=== PATIENT | female | born 1995 | race Two or more races ===

== ENCOUNTER 2023-08-15 13:34 | Outpatient (OUT) | payer OTHER, SELFPAY ==
--- NOTE | 2023-08-15 13:35 | US_ITS ---
[address] [address] Patient Name: JOAO ISRAEL MRN: [id number] date: 1995 Sex: F Assigned Patient Location: [facility] Current Patient Location: [facility] Accession/Order Number: [id number] Exam Date: 08/15/2023 13:35 Report Date: 08/15/2023 15:06 At the request of: KIMANI GREENE Procedure: US OB transvaginal EXAMINATION: US OB transvaginal HISTORY: MISSED MENSES COMPARISON: No relevant comparison available. FINDINGS: Angel intrauterine gestation Gestational sac: 3.7 cm, 8 weeks 6 days CRL: 3.0 cm, 10 weeks 0 days Yolk sac: 1.7 mm Heart rate: 150 beats minute Cervix: Closed, 4.3 cm The uterus is normal, anteverted The ovaries are normal. Right corpus luteal cyst Clinical age: Unknown Ultrasound age: 10 weeks 0 days Ultrasound ALANA: 03/12/2024 US/US OB transvaginal IMPRESSION: Viable angel intrauterine gestation measuring 10 weeks 0 days Electronically authenticated by: EDWARD BRITTON Date: 08/15/2023 15:06
== END 2023-08-15 13:35 | disposition home or self-care (01) ==
LOC: NOMS 13:34
PROVIDERS: Visit Provider Obstetrics & Gynecology
DX: Z34.91 Encounter for supervision of normal pregnancy, unspecified, first trimester (principal); Z3A.10 10 weeks gestation of pregnancy
CPT/HCPCS: 76817

== ENCOUNTER 2024-01-29 11:36 | Outpatient (OUT) | payer OTHER, SELFPAY ==
--- NOTE | 2024-01-29 11:43 | US_ITS ---
[address] [address] Patient Name: JOAO ISRAEL MRN: [id number] date: 1995 Sex: F Assigned Patient Location: [facility] Current Patient Location: [facility] Accession/Order Number: [id number] Exam Date: 01/29/2024 11:43 Report Date: 01/29/2024 13:17 At the request of: KIMANI GREENE Procedure: US OB anatomy EXAMINATION: US OB anatomy, US OB cervical length HISTORY: ANATOMY COMPARISON: No relevant comparison available. TECHNIQUE: Transabdominal sonographic examination was performed for obstetrical and evaluation. FINDINGS: Suboptimal exam due to advanced gestational age Number: 1 Heart Rate: 136 H.B. /min Amniotic Fluid Volume: 9.2 cm position: Cephalic presentation, longitudinal lie Placental Location: Posterior. The placental edge cannot be visualized in relation to the cervix due to position Cervix Length: 4.4 cm, closed Normal observed anatomy: Four-chamber heart, RVOT, LVOT, diaphragm, stomach, kidneys, bladder, umbilical arteries, three-vessel cord, spine Suboptimal visualization: Lateral ventricles, cerebellum, posterior fossa, orbits, abdominal cord insertion, extremities BIOMETRY: BPD: 8.21 cm, 23%, 33 weeks 0 days HC: 30.5 cm, 17%, 34 weeks 0 days AC: 30.0 cm, 56%, 34 weeks 0 days FL: 6.6 cm, 42%, 34 weeks 0 days EFW:2291 g, 5 lbs. 1 oz., 43%; FL/AC: 21.99 FL/BPD: 80.27 HC/AC: 1.02 GESTATIONAL AGE: Age by EDC: 33 weeks 6 days ALANA by EDC: 03/12/2024 Age by current US: 33 weeks 5 days ALANA by current US: 03/13/2024 US/US OB anatomy IMPRESSION: Suboptimal exam secondary to advanced gestational age with suboptimal visualization detailed above Closed cervix measuring 4.4 cm in length *Reference: [facility] Practice Guideline for the performance of Obstetric Ultrasound Examinations, April 21, 2007. Electronically authenticated by: EDWARD BIRTTON Date: 01/29/2024 13:17
--- NOTE | 2024-01-29 11:43 | US_ITS ---
[address] [address] Patient Name: JOAO ISRAEL MRN: [id number] date: 1995 Sex: F Assigned Patient Location: [facility] Current Patient Location: [facility] Accession/Order Number: [id number] Exam Date: 01/29/2024 11:43 Report Date: 01/29/2024 13:17 At the request of: KIMANI GREENE Procedure: US OB cervical length EXAMINATION: US OB anatomy, US OB cervical length HISTORY: ANATOMY COMPARISON: No relevant comparison available. TECHNIQUE: Transabdominal sonographic examination was performed for obstetrical and evaluation. FINDINGS: Suboptimal exam due to advanced gestational age Number: 1 Heart Rate: 136 H.B. /min Amniotic Fluid Volume: 9.2 cm position: Cephalic presentation, longitudinal lie Placental Location: Posterior. The placental edge cannot be visualized in relation to the cervix due to position Cervix Length: 4.4 cm, closed Normal observed anatomy: Four-chamber heart, RVOT, LVOT, diaphragm, stomach, kidneys, bladder, umbilical arteries, three-vessel cord, spine Suboptimal visualization: Lateral ventricles, cerebellum, posterior fossa, orbits, abdominal cord insertion, extremities BIOMETRY: BPD: 8.21 cm, 23%, 33 weeks 0 days HC: 30.5 cm, 17%, 34 weeks 0 days AC: 30.0 cm, 56%, 34 weeks 0 days FL: 6.6 cm, 42%, 34 weeks 0 days EFW:2291 g, 5 lbs. 1 oz., 43%; FL/AC: 21.99 FL/BPD: 80.27 HC/AC: 1.02 GESTATIONAL AGE: Age by EDC: 33 weeks 6 days ALANA by EDC: 03/12/2024 Age by current US: 33 weeks 5 days ALANA by current US: 03/13/2024 US/US OB cervical length IMPRESSION: Suboptimal exam secondary to advanced gestational age with suboptimal visualization detailed above Closed cervix measuring 4.4 cm in length *Reference: [facility] Practice Guideline for the performance of Obstetric Ultrasound Examinations, April 21, 2007. Electronically authenticated by: EDWARD BRITTON Date: 01/29/2024 13:17
== END 2024-01-29 11:37 | disposition home or self-care (01) ==
LOC: NOMS 11:41
PROVIDERS: PCP Nurse Practitioner; Visit Provider Obstetrics & Gynecology
DX: Z36.89 Encounter for other specified antenatal screening (principal)
CPT/HCPCS: 76805; 76817

== ENCOUNTER 2024-02-05 14:21 | Outpatient (OUT) | payer OTHER, SELFPAY ==
[2024-02-05 15:14] LABS: Estimated Average Glucose 114 mg/dL; Glycohemoglobin A1C 5.6 % (4.5-6.2)
[2024-02-05 15:27] LABS: Basophils Percent Auto 0.3 % (0.2-2.0); Eosinophils Absolute Auto 0.1 10^3/uL (0.0-0.7); Eosinophils Percent Auto 0.8 % (0.9-7.0); Hematocrit 33.8 % (36.0-48.0); Hemoglobin 10.6 g/dL (12.0-16.0); Immature Granulocytes Abs Auto 0.13 10^3/uL (0.00-0.03); Immature Granulocytes Pct Auto 1.1 % (0.0-0.5); Lymphocytes Absolute Auto 2.6 10^3/uL (1.2-3.8); Lymphocytes Percent Auto 21.7 % (20.5-60.0); Mean Corpuscular HGB Conc 31.4 g/dL (29.9-35.2); Mean Corpuscular Hemoglobin 27.7 pg (26.7-34.0); Mean Corpuscular Volume 88.3 fL (81.0-99.0); Mean Platelet Volume 11.6 fL (9.5-13.5); Monocytes Absolute Auto 0.7 10^3/uL (0.3-0.8); Monocytes Percent Auto 5.5 % (1.7-12.0); Neutrophils Absolute Auto 8.4 10^3/uL (1.4-6.5); Neutrophils Percent Auto 70.6 % (43.0-75.0); Platelet Count 283 10^3/uL (150-450); Red Blood Count 3.83 10^6/uL (4.20-5.40); Red Cell Distribution Width 13.6 % (11.0-15.0)
[2024-02-06 08:13] LABS: HCV Ab Non Reactive (Non Reactive); HIV Ab/p24 Ag Screen Non Reactive (Non Reactive); Rubella Antibodies, IgG 4.94 index (Immune >0.99)
[2024-02-06 09:11] LABS: HBsAg Screen Negative (Negative)
[2024-02-06 13:11] LABS: Rapid Plasma Reagin, Quant Non Reactive titer (NonRea<1:1)
== END 2024-02-05 14:22 | disposition home or self-care (01) ==
PROVIDERS: PCP Nurse Practitioner; Visit Provider Obstetrics & Gynecology
DX: N92.6 Irregular menstruation, unspecified (principal)
CPT/HCPCS: 36415; 83036; 85025; 86592; 86762; 86803; 86850; 86900; 86901; 87086; 87340; 87389

== ENCOUNTER 2024-02-12 18:29 | Outpatient (REF) | payer OTHER, SELFPAY ==
--- OUTSIDE RECORDS SUMMARY | 2024-02-12 18:33 | XMS_ITS | CCD ---
Author Organization [facility] Care Team Providers Care Psychological Operations Specialist Name Role Phone Katharina Mallory Unavailable ShaniquaLenoRadha Unavailable Paula Benitez Unavailable Paula Brandon Unavailable DEANNE WHEAT Consulting UnavailTHOMAS Caballero Admitting Unavailable THOMAS CHÁVEZ Attending Unavailable [facility] Primary Care Unava ilable TORRES MORIN Consulting Unavailable KIMANI GREENE Referring Unavailable NO PCP, NO PCP Primary Care Unavailable KIMANI GREENE Referring Unavailable LOUIE VARGAS Primary Care Unavailable LOUIE ROSS Attending Unavailable Medications Current Medications Medication Drug Class(es) Dates Sig (Normalized) Sig (Original) ondansetron 4 mg disintegrating oral tablet (1 source) Serotonin-3 Receptor Antagonist Start: 01-24-2024 take 4 mg by mouth every eight hours Ondansetron Active 4 MG PO Every 8 hours 7 3 January 24, 2024 12:00am Post-OP Shoe/Soft Top Women - (2 sources) Start: 03-08-2019 Post-OP Shoe/Soft Top Women - as directed Feb, Active (2 sources) Active Problems Active Problems Problem Classification Problem Date Documented Date Episodic/Chronic Contraceptive and procreative management (1 source) Presence of (intrauterine) contraceptive device; Translations: [PRESENCE IU CONTRACEPT DEVICE] Onset: 10-08-2022 Episodic Menstrual disorders (1 source) Irregular menstruation, unspecified; Translations: [Irregular menstruation, unspecified] Onset: 07-17-2023 Chronic Nonspecific chest pain (4 sources) Chest pain, unspecified; Translations: [CHEST PAIN UNSPECIFIED] Onset: 10-04-2022 Episodic Other complications of (2 sources) Vomiting of , unspecified; Translations: [Nausea and vomiting during ] 01-24-2024 Episodic Substance-related disorders (1 source) Nicotine dependence, other tobacco product, uncomplicated; Translations: [NICOTINE DEPEND OTH TOB PROD UNCOMP] Onset: 10-08-2022 Chronic Past or Other Problems Problem Classification Problem Date Documented Da te Episodic/Chronic Immunizations and screening for infectious disease (3 sources) Encounter for screening for other viral diseases; Translations: [Contact with and (suspected) exposure to other viral communicable diseases] Onset: 04-12-2021 Resolved: 06-06-2021 Episodic Other upper respiratory infections (2 sources) Acute upper respiratory infection, unspecified Onset: 06-06-2021 Resolved: 02-21-2022 Episodic Unclassified (2 sources) Exposure to COVID-19 virus Z20.822 Onset: 02-05-2022 Resolved: 03-30-2022 Unclassified (1 source) Cough, unspecified type R05.9 Onset: 02-21-2022 Resolved: 02-21-2022 Results Test Name Value Interpretation Reference Range Facility HCG.beta subunit IA 3rd IS Q non 07-19-2023 HCG.beta subunit Qn 7602 m[IU]/mL Normal [facility] Comment on above: Result Comment: NEW REFERENCE RANGE WEEKS (SINCE LMP) MIU/mL 3 WEEKS 5 - 50 4 WEEKS 5 - 426 5 WEEKS 18 - 7,340 6 WEEKS 1,080 - 56,500 7-8 WEEKS 7,650 - 229,000 9-12 WEEKS 25,700 - 288,000 13-16 WEEKS 13,300 - 254,000 17-24 WEEKS 4,060 - 165,400 25-40 WEEKS 3,640 - 117,000 MALES AND NON- FEMALES - <5 MIU/mL This test has been FDA approved for use in only. Elevated levels are not necessarily diagnostic for trophoblastic or nontrophoblastic neoplasms. Performed By: #### 2 0415-6 #### [facility] ([id number]) [address] [place] [address], [address] [place] [address] HCG.beta subunit IA 3rd IS Q non 07-17-2023 HCG.beta subunit Qn 4887 m[IU]/mL Normal [facility] Comment on above: Result Comment: NEW REFERENCE RANGE WEEKS (SINCE LMP) MIU/mL 3 WEEKS 5 - 50 4 WEEKS 5 - 426 5 WEEKS 18 - 7,340 6 WEEKS 1,080 - 56,500 7-8 WEEKS 7,650 - 229,000 9-12 WEEKS 25,700 - 288,000 13-16 WEEKS 13,300 - 254,000 17-24 WEEKS 4,060 - 165,400 25-40 WEEKS 3,640 - 117,000 MALES AND NON- FEMALES - <5 MIU/mL This test has been FDA approved for use in only. Elevated levels are not necessarily diagnostic for trophoblastic or nontrophoblastic neoplasms. Performed By: #### 2 0415-6 #### [facility] ([id number]) [address], [address] [place] [address] CBC AUTO DIFFon 10-04-2022 BASO # 0.1 103/ul Normal 0.0-0.1 [facility] Comment on above: Performed By: #### C BC #### [facility] [address] [address] [address] Chrystal Tsai Basophils/100 WBC (Bld) 0.8 % Normal 0.2-2.0 [facility] Comment on above: Performed By: #### C BC #### [facility] [address] [address] [address] Chrystal Tsai EO # 0.2 103/ul Normal 0.0-0.7 [facility] Comment on above: Performed By: #### C BC #### [facility] [address] [address] [address] Chrystal Tsai Eosinophils/100 WBC (Bld) 2.5 % Normal 0.9-7.0 [facility] Comment on above: Performed By: #### C BC #### [facility] [address] [place] [address] Dr. Chrystal Tsai Erythrocyte distribution width (RBC) [Ratio] 14.6 % Normal 11.0-15.0 [facility] Comment on above: Performed By: #### C BC #### [facility] [address] [place] [address] Dr. Chrystal Tsai Hematocrit (Bld) [Volume fraction] 40.9 % Normal 36.0-48.0 [facility] Comment on above: Performed By: #### C BC #### [facility] [address] [place] [address] Dr. Chrystal Tsai Hemoglobin (Bld) [Mass/Vol] 13.0 g/dL Normal 12.0-16.0 [facility] Comment on above: Performed By: #### C BC #### [facility] [address] [place] [address] Dr. Chrystal Tsai IG # 0.01 10e3/ul Normal 0.00-0.03 [facility] Comment on above: Performed By: #### C BC #### [facility] [address] [place] [address] Dr. Chrystal Tsai IG % 0.1 % Normal 0.0-0.5 [facility] Comment on above: Performed By: #### C BC #### [facility] [address] [place] [address] Dr. Chrystal Tsai LYMPH # 3.0 103/ul Normal 1.2-3.8 [facility] Comment on above: Performed By: #### C BC #### [facility] [address] [place] [address] Dr. Chrystal Tsai Lymphocytes/100 WBC (Bld) 39.0 % Normal 20.5-60.0 [facility] Comment on above: Performed By: #### C BC #### [facility] [address] [place] [address] Dr. Chrystal Tsai MANUAL DIFF REQ NO Normal [facility] Comment on above: Performed By: #### C BC #### [facility] [address] [place] [address] Dr. Chrystal Tsai MCH (RBC) [Entitic mass] 27.0 pg Normal 26.7-34.0 [facility] Comment on above: Performed By: #### C BC #### [facility] [address] [place] [address] Dr. Chrystal Tasi MCHC (RBC) [Mass/Vol] 31.8 g/dL Normal 29.9-35.2 [facility] Comment on above: Performed By: #### C BC #### [facility] [address] [place] [address] Dr. Chrystal Tsai MCV (RBC) [Entitic vol] 84.9 fL Normal 81.0-99.0 [facility] Comment on above: Performed By: #### C BC #### [facility] [address] [place] [address] Dr. Chrystal Tsai MONO # 0.6 103/ul Normal 0.3-0.8 [facility] Comment on above: Performed By: #### C BC #### [facility] [address] [place] [address] Dr. Chrystal Tsai Monocytes/100 WBC (Bld) 7.2 % Normal 1.7-12.0 [facility] Comment on above: Performed By: #### C BC #### [facility] [address] [place] [address] Dr. Chrystal Tsai NEUT # 3.9 103/ul Normal 1.4-6.5 [facility] Comment on above: Performed By: #### C BC #### [facility] [address] [place] [address] Dr. Chrystal Tsai Neutrophils/100 WBC (Bld) 50.4 % Normal 43.0-75.0 [facility] Comment on above: Performed By: #### C BC #### [facility] [address] [place] [address] Dr. Chrystal Tsai Platelet mean volume (Bld) [Entitic vol] 11.3 fL Normal 9.5-13.5 [facility] Comment on above: Performed By: #### C BC #### [facility] [address] [address] [address] Chrystal Tsai PLT 286 103/ul Normal 150-450 [facility] Comment on above: Performed By: #### C BC #### [facility] [address] [address] [address] Chrystal Tsai RBC 4.82 106/ul Normal 4.20-5.40 [facility] Comment on above: Performed By: #### C BC #### [facility] [address] [address] [address] Chrystal Tsai WBC 7.7 103/ul Normal 4.0-11.0 [facility] Comment on above: Performed By: #### C BC #### [facility] [address] [address] [address] Chrystal Tsai CTA CHEST WO W CONon 023 CTA CHEST WO W CON EXAMINATION: CTA CHEST WO W CON, 10/04/2022 5:48 PM EDT HISTORY: Pulmonary embolism COMPARISON: None. TECHNIQUE: CT angiography of the chest was performed with IV contrast. MIP (maximum intensity projection) images or 3D post processing was performed. CT dose reduction technique was used, including Automated Exposure Control. FINDINGS: VASCULATURE/PULMONARY ARTERIES: There is satisfactory opacification of the pulmonary arterial system. There is no evidence of pulmonary embolism. The main pulmonary artery is normal in diameter. The aorta and great vessels appear normal. HEART/PERICARDIUM: Normal. MEDIASTINAL/HILAR LYMPH NODES: No lymphadenopathy. ESOPHAGUS: Normal as visualized. PLEURAL CAVITY: No pleural effusion or pneumothorax. LUNGS/AIRWAYS: No infiltrates or consolidations. No suspicious pulmonary nodules. CHEST WALL/AXILLA/LOWER NECK: Normal. VISUALIZED UPPER ABDOMEN: Normal. BONES: No acute process. IMPRESSION: 1. No evidence of pulmonary embolism. 2. No other acute cardiopulmonary process. Electronically authenticated by: TORRES MORIN Date: 2022-10-04 19:13 Normal [facility] D-DIMERon 10-04-2022 D-DIMER 0.92 mg/L FEU Critically high <=0.59 [facility] Comment on above: Performed By: #### D DIM #### [facility] [address] [place] [address] Dr. Chrystal Tsai D-DIMER COMMENTS SEE BELOW Normal [facility] Comment on above: Result Comment: Incr eases in D-Dimer concentration observed with thromboembolic events can be variable due to localization, size, and age of the thrombus. Therefore, a thromboembolic event cannot be diagnosed with certainty on the basis of the reference range. D-Dimers may also be elevated for a variety of disorders including: advanced age, , coronary disease, cancer, liver disease, infection, inflammation, hematoma, DIC, trauma, post-surgery, diabetes, thrombolytic or anticoagulant therapy, stress, and generalized hospitalization. Performed By: #### D DIM #### [facility] [address] [place] [address] Dr. Chrystal Tsai PROF 14(COMP METB)on 023 Albumin [Mass/Vol] 3.7 g/dL Normal 3.4-5.0 [facility] Comment on above: Performed By: #### C KEYSHA HSTROPN #### [facility] [address] [place] [address] Dr. Chrystal Tsai Albumin/Globulin [Mass ratio] 1.0 {ratio} Normal [facility] Comment on above: Performed By: #### C KEYSHA, HSTROPN #### [facility] [address] [place] [address] Dr. Chrystal Tsai ALP [Catalytic activity/Vol] 82 U/L Normal 46-116 [facility] Comment on above: Performed By: #### C KEYSHA, HSTROPN #### [facility] [address] [place] [address] Dr. Chrystal Tsai ALT [Catalytic activity/Vol] 17 U/L Normal 14-59 [facility] Comment on above: Performed By: #### C MP, HSTROPN #### [facility] [address] [place] [address] Dr. Chrystal Tsai Anion gap [Moles/Vol] 13.7 mmol/L Normal [facility] Comment on above: Performed By: #### C MP, HSTROPN #### [facility] [address] [place] [address] Dr. Chrystal Tsai AST [Catalytic activity/Vol] 14 U/L Critically low 15-37 [facility] Comment on above: Performed By: #### C KEYSHA, HSTROPN #### [facility] [address] [place] [address] Dr. Chrystal Tsai Bilirubin [Mass/Vol] 0.2 mg/dL Normal 0.2-1.0 [facility] Comment on above: Performed By: #### C KEYSHA, HSTROPN #### [facility] [address] [address] [address] Chrystal Tsai Calcium [Mass/Vol] 8.8 mg/dL Normal 8.5-10.1 [facility] Comment on above: Performed By: #### C KEYSHA, HSTROPN #### [facility] [address] [place] [address] Dr. Chrystal Tsai Chloride [Moles/Vol] 107 mmol/L Normal 98-107 [facility] Comment on above: Performed By: #### C KEYSHA, HSTROPN #### [facility] [address] [place] [address] Dr. Chrystal Tsai CO2 [Moles/Vol] 26.6 mmol/L Normal 21.0-32.0 [facility] Comment on above: Performed By: #### C KEYSHA, HSTROPN #### [facility] [address] [place] [address] Dr. Chrystal Tsai Creatinine [Mass/Vol] 0.89 mg/dL Normal 0.55-1.02 [facility] Comment on above: Performed By: #### C KEYSHA, HSTROPN #### [facility] [address] [place] [address] Dr. Chrystal Tsai EGFR-AF FILIPINO >60 Normal >=60 [facility] Comment on above: Performed By: #### C KEYSHA, HSTROPN #### [facility] [address] [place] [address] Dr. Chrystal Tsai EGFR-NON AF FILIPINO >60 Normal >=60 [facility] Comment on above: Performed By: #### C KEYSHA, HSTROPN #### [facility] [address] [address] [address] Chrystal Tsai Globulin (S) [Mass/Vol] 3.7 g/dL Normal [facility] Comment on above: Performed By: #### C MP, HSTROPN #### [facility] [address] [address] [address] Chrystal Tsai Glucose [Mass/Vol] 92 mg/dL Normal 74-106 [facility] Comment on above: Performed By: #### C MP, HSTROPN #### [facility] [address] [place] [address] Dr. Chrystal Tsai Potassium [Moles/Vol] 4.3 mmol/L Normal 3.5-5.1 [facility] Comment on above: Performed By: #### C MP, HSTROPN #### [facility] [address] [place] [address] Dr. Chrystal Tsai Protein [Mass/Vol] 7.4 g/dL Normal 6.4-8.2 [facility] Comment on above: Performed By: #### C MP, HSTROPN #### [facility] [address] [place] [address] Dr. Chrystal Tsai Sodium [Moles/Vol] 143 mmol/L Normal 136-145 [facility] Comment on above: Performed By: #### C MP, HSTROPN #### [facility] [address] [place] [address] Dr. Chrystal Tsai Urea nitrogen [Mass/Vol] 9.0 mg/dL Normal 7.0-18.0 [facility] Comment on above: Performed By: #### C MP, HSTROPN #### [facility] [address] [place] [address] Dr. Chrystal Tsai Urea nitrogen/Creatinin e [Mass ratio] 10.1 mg/mg Normal [facility] Comment on above: Performed By: #### C MP, HSTROPN #### [facility] [address] [place] [address] Dr. Chrystal Tsai TROPONIN, HIGH SENSITIVITYon 10-04-2022 HSTROP <4.0 Normal 4.0-51.3 [facility] Comment on above: Result Comment: CUT- OFF POINTS HAVE BEEN ESTABLISHED BASED ON THE FOURTH UNIVERSAL DEFINITIONS OF MYOCARDIAL INFARCTION. THE UPPER REFERENCE LIMIT (URL) OF TROPONIN, DEFINED THE 99TH PERCENTILE OF cTnI DISTRIBUTION IN A REFERENCE POPULATION, HAS BEEN CONFIRMED THE DECISION THRESHOLD FOR DE DIAGNOSIS. Performed By: #### C MP, HSTROPN #### [facility] [address] [place] [address] Dr. Chrystal Tsai SARS-CoV-2 (COVID-19) RNA NA A+probe Ql (Resp)on 03-30-2022 SARS-CoV-2 (COVID-19) RNA BEST+probe Ql (Unsp spec) Negative [facility] [employer] Other SARS-CoV-2 (COVID-19) RNA NA A+probe Ql (Resp)on 02-21-2022 SARS-CoV-2 (COVID-19) RNA BEST+probe Ql (Unsp spec) Negative [employer] Other SARS-CoV-2 (COVID-19) RNA NA A+probe Ql (Resp)on 02-05-2022 SARS-CoV-2 (COVID-19) RNA BEST+probe Ql (Unsp spec) Negative [employer] [employer] Other COVID Quick Testingon 2020 Result Negative [facility] [employer] Other COVID Quick Testingon 2020 Result Negative [facility] [employer] Other COVID Quick Testingon 2020 Result Negative [facility] [employer] Other Vital Signs Date Time Vital Sign Value Performing Clinician Facility 01-24-2024 17:02-0400 Body height 157.48 cm [facility] 01-24-2024 17:-040 Body mass index (BMI) [Ratio] 41.3 kg/m2 [facility] 01-24-2024 17:02-040 Body temperature 100.3 [degF] [facility] 01-24-2024 17:02040 Body weight 102.51 kg [facility] 01-24-2024 17:02-0400 Diastolic blood pressure 68 mm[Hg] [facility] 01-24-2024 17:02-0400 Heart rate 93 /min [facility] 01-24-2024 17:02-0400 Respiratory rate 18 /min [facility] 01-24-2024 17:02-0400 SaO2% (BldA) [Mass fraction] 99 % [facility] 01-24-2024 17:02-0400 Systolic blood pressure 106 mm[Hg] [facility] 03-30-2022 19:05-0400 Body height 157.48 cm Paula Brandon Other [facility] [employer] Other 03-30-2022 19:05-0400 Body mass index (BMI) [Ratio] 36.61 kg/m2 Paula Brandon Other [employer] Other 03-30-2022 19:05-0400 Body temperature 98.8 [degF] Paula Brandon Other [employer] Other 03-30-2022 19:05-0400 Body weight 90.81 kg Paula Brandon Other [employer] Other 03-30-2022 19:05-0400 Diastolic blood pressure 60 mm[Hg] Paula Brandon Other [employer] Other 03-30-2022 19:05-0400 Respiratory rate 18 /min Paula Brandon Other [employer] Other 03-30-2022 19:05-0400 SaO2% (BldA) [Mass fraction] 98 % Paula Brandon Other [employer] Other 03-30-2022 19:05-0400 Systolic blood pressure 103 mm[Hg] Paula Brandon Other [employer] Other 02-21-2022 14:45-0400 Body height 157.48 cm Katharina Mallory Other [employer] Other 02-21-2022 14:45-0400 Body mass index (BMI) [Ratio] 38.59 kg/m2 Katharina Mallory Other [employer] Other 02-21-2022 14:45-0400 Body temperature 98.4 [degF] Katharina Mallory Other [employer] Other 02-21-2022 14:45-0400 Body weight 95.71 kg Katharina Mallory Other [employer] Other 02-21-2022 14:45-0400 Respiratory rate 18 /min Katharina Mallory Other [employer] Other 02-21-2022 14:45-0400 SaO2% (BldA) [Mass fraction] 99 % Katharina Mallory Other [employer] Other 02-05-2022 18:35-0400 Body height 157.48 cm Radha Mcgovern Other [employer] Other 02-05-2022 18:35-0400 Body mass index (BMI) [Ratio] 39.5 kg/m2 Radha Mcgovern Other [employer] Other 02-05-2022 18:35-0400 Body temperature 100.7 [degF] Radha Mcgovern Other [facility] Other 02-05-2022 18:35-0400 Body weight 97.98 kg Radha Mcgovern Other [facility] Other 02-05-2022 18:35-0400 Respiratory rate 18 /min Radha Mcgovern Other [employer] Other 02-05-2022 18:35-0400 SaO2% (BldA) [Mass fraction] 98 % Radha Mcgovern Other [employer] Other 06-06-2021 11:00-0500 Body height 157.48 cm Paula Ginty Other [employer] Other 06-06-2021 11:00-0500 Body mass index (BMI) [Ratio] 40.23 kg/m2 Paula Ginty Other [employer] Other 06-06-2021 11:00-0500 Body weight 99.79 kg Paula Ginty Other [employer] Other Encounters Encounter Date Encounter Type Care Provider Facility Start: 01-24-2024 End: 01-24-2024 ambulatory [facility] Work Phone: Start: 01-24-2024 End: 01-24-2024 Patient encounter procedure [facility] Work Phone: Start: 08-15-2023 End: 08-15-2023 ambulatory LOUIE AICHHOLZ Not Available Start: 07-19-2023 End: 07-20-2023 ambulatory [facility] Start: 07-17-2023 End: 07-18-2023 ambulatory KIMANI [facility] Start: 07-08-2023 End: 07-08-2023 ambulatory LOUIE AICHHOLZ Not Available Start: 10-04-2022 End: 10-04-2022 ambulatory DEANNE MENDOZA . Facility: Start: 03-30-2022 End: 03-30-2022 ambulatory Paula Brandon Other [employer] Other Start: 03-30-2022 Office outpatient visit 25 minutes Paula Brandon [facility] Start: 02-21-2022 End: 02-21-2022 ambulatory Katharina Shawnee Other [employer] Other Start: 02-21-2022 Office outpatient visit 15 minutes Katharina Shawnee [facility] Start: 02-05-2022 End: 02-05-2022 ambulatory Radha Mcgovern Other [employer] Other Start: 02-05-2022 Office outpatient visit 25 minutes Radhatiesha Mcgovern [facility] Start: 06-06-2021 End: 06-06-2021 ambulatory Paula Vaishalinty Other [employer] Other Start: 06-06-2021 Office outpatient visit 15 minutes Paula Vaishalinty [facility] Start: 05-08-2021 Office outpatient visit 5 minutes Radha Shaniqua [facility] Start: 04-12-2021 Office outpatient visit 5 minutes Katharina Shawnee [facility] Payers Date Payer Category Payer Unknown [id number] 2.16.84 [id number] 1995 Unknown [id number] 2.16.84 [id number] 1997 Unknown [id number] 2.16.84 [id number] 1997 Unknown [id number] [id number] [id number] 1959 Unknown [id number] Self-pay Self Pay [id number] Unknown [id number] 2.1 [id number] Social History Date Type Detail Facility Sex Assigned At [employer] Other Start: 1995 Sex Assigned At Female F [facility] Evaluation note 03-30-2022 Note Date & Type Note Facility 03-30-2022 Evaluation note Encounter Date Diagnosis Assessment Notes Mar, Exposure to COVID-19 virus (ICD-10 - Z20.822) Advised patient that COVID PCR test was negative today. Advised patient that tests are only accurate if she has been experiencing symptoms at least 48-72 hours. If symptoms continue or worsen, encouraged use of at home test. Supportive care as directed, increase fluids and rest, Tylenol/Motrin as directed, OTC cough/cold remedies as directed on packaging, cool mist humidifier, throat lozenges. Discussed infection control practices such as good hand washing and mask wearing. Patient to follow up with PCP if sx persist or worsen despite treatment. Immediate eval for SOB, difficulty, chest pain, fevers that do not break with antipyretic or any other concerning symptoms as reviewed on patient education handout. Patient verbalizes understanding and is agreeable to treatment plan. Patient left in stable condition [employer] Other Evaluation note 02-21-2022 Note Date & Type Note Facility 02-21-2022 Evaluation note Encounter Date Diagnosis Assessment Notes Feb, Cough, unspecified type (ICD-10 - R05.9) Feb, Viral upper respiratory infection (ICD-10 - J06.9) Viral upper respiratory infection: adult home care material was printed Drink plenty of fluids, get plenty of rest. Take Tylenol or Motrin for aches pains or fevers. Follow-up with your family physician if no improvement in 2 to 3 days. [facility] Other Evaluation note 02-05-2022 Note Date & Type Note Facility 02-05-2022 Evaluation note Encounter Date Diagnosis Assessment Notes Jan, Exposure to COVID-19 virus (ICD-10 - Z20.822) [facility] Other Evaluation note 06-06-2021 Note Date & Type Note Facility 06-06-2021 Evaluation note Encounter Date Diagnosis Assessment Notes May, Contact with and (suspected) exposure to other viral communicable diseases (ICD-10 - Z20.828) May, Viral URI (ICD-10 - J06.9) Advised patient that COVID antigen test was negative today. Advised patient that will tx as viral URI. Supportive care as directed, increase fluids and rest, Tylenol/Motrin as directed, OTC cough/cold remedies as directed on packaging, cool mist humidifier, throat lozenges. Discussed infection control practices such as good hand washing and mask wearing. Patient to follow up with PCP if sx persist or worsen despite treatment. Immediate eval for warning s/sx as discussed. Patient verbalizes understanding and is agreeable to treatment plan May, Other Additional time spent conducting pre-visit phone call, screening for symptoms, instructions on social distancing, application and removal of PPE, and cleaning of examination room, equipment and supplies was preformed. Patient education given for testing methodology and results. Patient care instructions given in writting by [facility] document [facility] Other Evaluation note 05-08-2021 Note Date & Type Note Facility 05-08-2021 Evaluation note Encounter Date Diagnosis Assessment Notes Apr, Encounter for screening for other viral diseases (ICD-10 - Z11.59) Apr, Other Additional time spent conducting pre-visit phone call, screening for symptoms, instructions on social distancing, application and removal of PPE, and cleaning of examination room, equipment and supplies was preformed. Patient education given for testing methodology and results. Patient care instructions given in writting by [facility] document. Additional time spent conducting pre-visit phone call, screening for symptoms, instructions on social distancing, application and removal of PPE, and cleaning of examination room, equipment and supplies was preformed. Patient education given for testing methodology and results. Patient care instructions given in writting by [facility] document. [facility] Other Evaluation note 04-12-2021 Note Date & Type Note Facility 04-12-2021 Evaluation note Encounter Date Diagnosis Assessment Notes Mar, Encounter for screening for other viral diseases (ICD-10 - Z11.59) Mar, Other Additional time spent conducting pre-visit phone call, screening for symptoms, instructions on social distancing, application and removal of PPE, and cleaning of examination room, equipment and supplies was preformed. Patient education given for testing methodology and results. Patient care instructions given in writting by [facility] document. [facility] Other Evaluation note Note Date & Type Note Facility Evaluation note Diagnosis Onset Date Nausea and vomiting during [facility] Work Phone: History general Narrative - Reported Note Date & Type Note Facility History general Narrative - Reported Type Medical History 21 weeks [facility] Other Summary Purpose Family History No Family History Records FoundNo Family History Records FoundNo Family History Records Found Advance Directives Advance Directive Response Recorded Date/ Time Advance Directives No March 09, 2019 6:28am Chief Complaint and Reason for Visit Chief Complaint nauseous (wants zolf ran or something to help) Reason for Visit Nausea and vomiting during Additional Source Comments REASON FOR VISIT (unrecogniz ed section and content) #30 SILVER TRAVERSE, COVID E XPOSURE#29 SILVER CHEVY TRAVERSE, COVID EXPOSURE, NO SX., COVID Nurse Visit- Self Pay, COVID Nurse Visit- Self Pay#5 SILVER TRAVERSE, EXPOSURE, SORE THROAT, RUNNY NOSEBLACK MINIVAN, CONGESTION, H/A, COVID EXPOSUREBLACK CARAVAN, CONGESTION, COUGH, EXPOSUREBLACK DODGE VAN, COUGH, CONGESTION, LOOSE STOOL, N/V INFORMATION SOURCE (unrecogn ized section and content) DATE CREATED AUTHOR 10/08/2022 [facility] DATE CREATED AUTHOR AUTHOR'S ORGANIZ ATION 07/21/2023 [facility] DATE CREATED AUTHOR AUTHOR'S ORGANIZ ATION 08/17/2023 [facility] EPIC Care Teams (unrecognized sec tion and content) Team Status: Active Member Role Status Dates Jossy Nuñez DO Primary Care Provider Active Team Status: Inactive Member Role Status Dates Jossy Nuñez DO Primary Care Provider Active St art: January 24, 2024 End: January 24, 2024 Betsy Rios APRN Attending Provider Active S tart: January 24, 2024 End: January 24, 2024 Goals (unrecognized section and content) Goals may be documented in a n alternate section FOR RECORDS PERTAINING TO PATIENTS WHO ARE OR HAVE BEEN ENROLLED IN A CHEMICAL DEPENDENCY/SUBSTANCEABUSE PROGRAM, SOME INFORMATION MAY BE OMITTED. This clinical summary was aggregated from multiple sources. Caution should be exercised in using it in the provision of clinical care. This summary normalizes information from multiple sources, and as a consequence, information in this document may materially change the coding, format and clinical context of patient data. In addition, data may be omitted in some cases. CLINICAL DECISIONS SHOULD BE BASED ON THE PRIMARY CLINICAL RECORDS. [facility] provides no warranty or guarantee of the accuracy or completeness of information in this document.
== END 2024-02-12 18:30 | disposition home or self-care (01) ==
LOC: LAB 18:29
PROVIDERS: PCP Nurse Practitioner; Visit Provider Physician Assistant
DX: Z34.93 Encounter for supervision of normal pregnancy, unspecified, third trimester (principal)
CPT/HCPCS: 36415; 87081; 87150

== ENCOUNTER 2024-03-05 04:55 | Inpatient (IN) | payer OTHER, SELFPAY ==
[2024-03-05] VITALS (44 sets, daily range): BP systolic 86–138; BP diastolic 51–86; PULSE 68–123; TEMP 36.2–36.8
--- OUTSIDE RECORDS SUMMARY | 2024-03-05 04:59 | XMS_ITS | CCD ---
Author Organization [facility] Team Providers Care Briar Wood Sorter Name Role Phone Katharina Mallory Unavailable Radha Mcgovern Unavailable Paula Benitez Unavailable Palua Brandon Unavailable DEANNE WHEAT Consulting UnavailTHOMAS Caballero Admitting Unavailable THOMAS CHÁVEZ Attending Unavailable [facility] Primary Care Unava ilTORRES Moser Consulting Unavailable KIMANI GREENE Referring Unavailable NO PCP, NO PCP Primary Care Unavailable KIMANI GREENE Referring Unavailable LOUIE VARGAS Primary Care Unavailable KIMANI GREENE Attending Unavailable JAVIER DRAKE Attending Unavailable JAVIER DRAKE Attending Unavailable JAVIER DRAKE Attending Unavailable LOUIE ROSS Attending Unavailable Medications Current [...] 07-19-2023 HCG.beta subunit Qn 7602 m[IU]/mL Normal [facility] Comment on above: Result Comment: NEW REFERENCE [...] neoplasms. Performed By: #### 2 0415-6 #### [facility] ([id number]) [address], [address] [place] [address] HCG.beta subunit IA 3rd IS Q non 07-17-2023 [place] subunit Qn 4887 m[IU]/mL Normal [facility] Comment on above: Result Comment: NEW REFERENCE [...] neoplasms. Performed By: #### 2 0415-6 #### [facility] ([id number]) [address], [address] [place] [address] CBC AUTO DIFFon 10-04-2022 BASO # 0.1 103/ul Normal 0.0-0.1 [facility] Comment on above: Performed By: #### C BC #### [facility] [address] [address] [address] Chrystal Tsai Basophils/100 WBC (Bld) 0.8 % Normal 0.2-2.0 [facility] Comment on above: Performed By: #### C BC #### [facility] [address] [address] [address] Chrystal Tsai EO # 0.2 103/ul Normal 0.0-0.7 [facility] Comment on above: Performed By: #### C BC #### [facility] [address] [place] [address] Dr. Chrystal Tsai Eosinophils/100 WBC (Bld) 2.5 % Normal 0.9-7.0 [facility] Comment on above: Performed By: #### C BC #### [facility] [address] [place] [address] Dr. Chrystal Tsai Erythrocyte distribution width (RBC) [Ratio] 14.6 % Normal 11.0-15.0 [facility] Comment on above: Performed By: #### C BC #### [facility] [address] [place] [address] Dr. Chrystal Tsai Hematocrit (Bld) [Volume fraction] 40.9 % Normal 36.0-48.0 [facility] Comment on above: Performed By: #### C BC #### [facility] [address] [place] [address] Dr. Chrystal Tsai Hemoglobin (Bld) [Mass/Vol] 13.0 g/dL Normal 12.0-16.0 [facility] Comment on above: Performed By: #### C BC #### [facility] [address] [place] [address] Dr. Chrystal Tsai IG # 0.01 10e3/ul Normal 0.00-0.03 [facility] Comment on above: Performed By: #### C BC #### [facility] [address] [place] [address] Dr. Chrystal Tsai IG % 0.1 % Normal 0.0-0.5 [facility] Comment on above: Performed By: #### C BC #### [facility] [address] [place] [address] Dr. Chrystal Tsai LYMPH # 3.0 103/ul Normal 1.2-3.8 [facility] Comment on above: Performed By: #### C BC #### [facility] [address] [place] [address] Dr. Chrystal Tsai Lymphocytes/100 WBC (Bld) 39.0 % Normal 20.5-60.0 [facility] Comment on above: Performed By: #### C BC #### [facility] [address] [place] [address] Dr. Chrystal Tsai MANUAL DIFF REQ NO Normal [facility] Comment on above: Performed By: #### C BC #### [facility] [address] [place] [address] Dr. Chrystal Tsai MCH (RBC) [Entitic mass] 27.0 pg Normal 26.7-34.0 [facility] Comment on above: Performed By: #### C BC #### [facility] [address] [place] [address] Dr. Chrystal Tsai MCHC (RBC) [Mass/Vol] 31.8 g/dL Normal 29.9-35.2 [facility] Comment on above: Performed By: #### C BC #### [facility] [address] [place] [address] Dr. Chrystal Tsai MCV (RBC) [Entitic vol] 84.9 fL Normal 81.0-99.0 [facility] Comment on above: Performed By: #### C BC #### [facility] [address] [place] [address] Dr. Chrystal Tsai MONO # 0.6 103/ul Normal 0.3-0.8 [facility] Comment on above: Performed By: #### C BC #### [facility] [address] [place] [address] Dr. Chrystal Tsai Monocytes/100 WBC (Bld) 7.2 % Normal 1.7-12.0 [facility] Comment on above: Performed By: #### C BC #### [facility] [address] [place] [address] Dr. Chrystal Tsai NEUT # 3.9 103/ul Normal 1.4-6.5 [facility] Comment on above: Performed By: #### C BC #### [facility] [address] [place] [address] Dr. Chrystal Tsai Neutrophils/100 WBC (Bld) 50.4 % Normal 43.0-75.0 [facility] Comment on above: Performed By: #### C BC #### [facility] [address] [place] [address] Dr. Chrystal Tsai Platelet mean volume (Bld) [Entitic vol] 11.3 fL Normal 9.5-13.5 [facility] Comment on above: Performed By: #### C BC #### [facility] [address] [place] [address] Dr. Chrystal Tsai PLT 286 103/ul Normal 150-450 [facility] Comment on above: Performed By: #### C BC #### [facility] [address] [address] [address] Chrystal Tsai RBC 4.82 106/ul Normal 4.20-5.40 [facility] Comment on above: Performed By: #### C BC #### [facility] [address] [place] [address] Dr. Chrystal Tsai WBC 7.7 103/ul Normal 4.0-11.0 [facility] Comment on above: Performed By: #### C BC #### [facility] [address] [place] [address] Dr. Chrystal Tsai CTA CHEST WO W [...] by: TORRES MORIN Date: 2022-10-04 19:13 Normal [facility] D-DIMERon 10-04-2022 D-DIMER 0.92 mg/L FEU Critically high <=0.59 [facility] Comment on above: Performed By: #### D DIM #### [facility] [address] [place] [address] Dr. Chrystal Tsai D-DIMER COMMENTS SEE BELOW Normal [facility] Comment on above: Result Comment: Incr eases [...] hospitalization. Performed By: #### D DIM #### [facility] [address] [place] [address] Dr. Chrystal Tsai PROF 14(COMP METB)on 023 Albumin [Mass/Vol] 3.7 g/dL Normal 3.4-5.0 [facility] Comment on above: Performed By: #### C MP, HSTROPN #### [facility] [address] [place] [address] Dr. Chrystal Tsai Albumin/Globulin [Mass ratio] 1.0 {ratio} Normal [facility] Comment on above: Performed By: #### C MP, HSTROPN #### [facility] [address] [place] [address] Dr. Chrystal Tsai ALP [Catalytic activity/Vol] 82 U/L Normal 46-116 [facility] Comment on above: Performed By: #### C MP, HSTROPN #### [facility] [address] [place] [address] Dr. Chrystal Tsai ALT [Catalytic activity/Vol] 17 U/L Normal 14-59 [facility] Comment on above: Performed By: #### C MP, HSTROPN #### [facility] [address] [place] [address] Dr. Chrystal Tsai Anion gap [Moles/Vol] 13.7 mmol/L Normal [facility] Comment on above: Performed By: #### C MP, HSTROPN #### [facility] [address] [address] [address] Chrystal Tsai AST [Catalytic activity/Vol] 14 U/L Critically low 15-37 [facility] Comment on above: Performed By: #### C MP, HSTROPN #### [facility] [address] [address] [address] Chrystal Tsai Bilirubin [Mass/Vol] 0.2 mg/dL Normal 0.2-1.0 [facility] Comment on above: Performed By: #### C MP, HSTROPN #### [facility] [address] [place] [address] Dr. Chrystal Tsai Calcium [Mass/Vol] 8.8 mg/dL Normal 8.5-10.1 [facility] Comment on above: Performed By: #### C KEYSHA, HSTROPN #### [facility] [address] [address] [address] Chrystal Tsai Chloride [Moles/Vol] 107 mmol/L Normal 98-107 [facility] Comment on above: Performed By: #### C KEYSHA, HSTROPN #### [facility] [address] [place] [address] Dr. Chrystal Tsai CO2 [Moles/Vol] 26.6 mmol/L Normal 21.0-32.0 [facility] Comment on above: Performed By: #### C MP, HSTROPN #### [facility] [address] [place] [address] Dr. Chrystal Tsai Creatinine [Mass/Vol] 0.89 mg/dL Normal 0.55-1.02 [facility] Comment on above: Performed By: #### C MP, HSTROPN #### [facility] [address] [place] [address] Dr. Chrystal Tsai EGFR-AF SOUTH AFRICAN >60 Normal >=60 [facility] Comment on above: Performed By: #### C MP, HSTROPN #### [facility] [address] [place] [address] Dr. Chrystal Tsai EGFR-NON AF SOUTH AFRICAN >60 Normal >=60 [facility] Comment on above: Performed By: #### C KEYSHA, HSTROPN #### [facility] [address] [address] [address] Chrystal Tsai Globulin (S) [Mass/Vol] 3.7 g/dL Normal [facility] Comment on above: Performed By: #### C KEYSHA, HSTROPN #### [facility] [address] [address] [address] Chrystal Tsai Glucose [Mass/Vol] 92 mg/dL Normal 74-106 [facility] Comment on above: Performed By: #### C KEYSHA, HSTROPN #### [facility] [address] [place] [address] Dr. Chrystal Tsai Potassium [Moles/Vol] 4.3 mmol/L Normal 3.5-5.1 [facility] Comment on above: Performed By: #### C KEYSHA, HSTROPN #### [facility] [address] [place] [address] Dr. Chrystal Tsai Protein [Mass/Vol] 7.4 g/dL Normal 6.4-8.2 [facility] Comment on above: Performed By: #### C KEYSHA, HSTROPN #### [facility] [address] [place] [address] Dr. Chrystal Tsai Sodium [Moles/Vol] 143 mmol/L Normal 136-145 [facility] Comment on above: Performed By: #### C KEYSHA, HSTROPN #### [facility] [address] [place] [address] Dr. Chrystal Tsai Urea nitrogen [Mass/Vol] 9.0 mg/dL Normal 7.0-18.0 [facility] Comment on above: Performed By: #### C KEYSHA, HSTROPN #### [facility] [address] [place] [address] Dr. Chrystal Tsai Urea nitrogen/Creatinin e [Mass ratio] 10.1 mg/mg Normal [facility] Comment on above: Performed By: #### C KEYSHA, HSTROPN #### [facility] [address] [place], [place] [address] Dr. Chrystal Tsai TROPONIN, HIGH SENSITIVITYon 10-04-2022 HSTROP <4.0 Normal 4.0-51.3 [facility] Comment on above: Result Comment: CUT- OFF POINTS HAVE BEEN ESTABLISHED BASED ON THE FOURTH UNIVERSAL DEFINITIONS OF MYOCARDIAL INFARCTION. THE UPPER REFERENCE LIMIT (URL) OF TROPONIN, DEFINED THE 99TH PERCENTILE OF cTnI DISTRIBUTION IN A REFERENCE POPULATION, HAS BEEN CONFIRMED THE DECISION THRESHOLD FOR LA DIAGNOSIS. Performed By: #### C MP, HSTROPN #### [facility] [address] [place], [place] [address] Dr. Chrystal Tsai SARS-CoV-2 (COVID-19) RNA NA A+probe Ql (Resp)on 03-30-2022 SARS-CoV-2 (COVID-19) RNA BEST+probe Ql (Unsp spec) Negative [facility] Other SARS-CoV-2 (COVID-19) RNA NA A+probe Ql (Resp)on 02-21-2022 SARS-CoV-2 (COVID-19) RNA BEST+probe Ql (Unsp spec) Negative [facility] Other SARS-CoV-2 (COVID-19) RNA NA A+probe Ql (Resp)on 02-05-2022 SARS-CoV-2 (COVID-19) RNA BEST+probe Ql (Unsp spec) Negative [facility] Other COVID Quick Testingon 2020 Result Negative [facility] Other COVID Quick Testingon 2020 Result Negative [facility] Other COVID Quick Testingon 2020 Result Negative [facility] Other Vital Signs Date Time Vital Sign Value Performing Clinician Facility 01-24-2024 17:02-0400 Body height 157.[address] [facility] 01-24-2024 17:02-0400 Body mass index (BMI) [Ratio] 41.3 kg/m2 [facility] 01-24-2024 17:02-0400 Body temperature 100.3 [degF] [facility] 01-24-2024 17:02-0400 Body weight 102.[address] [facility] 01-24-2024 17:02-0400 Diastolic blood pressure 68 mm[Hg] [facility] 01-24-2024 17:02-0400 Heart rate 93 /min [facility] 01-24-2024 17:02-0400 Respiratory rate 18 /min [facility] 01-24-2024 17:02-0400 SaO2% (BldA) [Mass fraction] 99 % [facility] 01-24-2024 17:02-0400 Systolic blood pressure 106 mm[Hg] [facility] 03-30-2022 19:05-0400 Body height 157.48 cm Paula Brandon Other [employer] [employer] Other 03-30-2022 19:05-0400 Body mass index (BMI) [Ratio] 36.61 kg/m2 Paula Brandon Other [employer] [facility] [employer] Other 03-30-2022 19:05-0400 Body temperature 98.8 [degF] Paula Kingler Other [facility] Other 03-30-2022 19:05-0400 Body weight 90.81 kg Paula Brandon Other [facility] Other 03-30-2022 19:05-0400 Diastolic blood pressure 60 mm[Hg] Paula Brandon Other [facility] Other 03-30-2022 19:05-0400 Respiratory rate 18 /min Paula Brandon Other [facility] Other 03-30-2022 19:05-0400 SaO2% (BldA) [Mass fraction] 98 % Paula Brandon Other [facility] Other 03-30-2022 19:05-0400 Systolic blood pressure 103 mm[Hg] Paula Brandon Other [facility] Other 02-21-2022 14:45-0400 Body height 157.48 cm Katharina Mallory Other [facility] Other 02-21-2022 14:45-0400 Body mass index (BMI) [Ratio] 38.59 kg/m2 Katharina Mallory Other [facility] Other 02-21-2022 14:45-0400 Body temperature 98.4 [degF] Katharina Mallory Other [facility] Other 02-21-2022 14:45-0400 Body weight 95.71 kg Katharina Mallory Other [facility] Other 02-21-2022 14:45-0400 Respiratory rate 18 /min Katharina Mallory Other [facility] Other 02-21-2022 14:45-0400 SaO2% (BldA) [Mass fraction] 99 % Katharina Mallory Other [facility] Other 02-05-2022 18:35-0400 Body height 157.48 cm Radha Mcgovern Other [facility] Other 02-05-2022 18:35-0400 Body mass index (BMI) [Ratio] 39.5 kg/m2 Radha Mcgovern Other [facility] Other 02-05-2022 18:35-0400 Body temperature 100.7 [degF] Radha Mcgovern Other [facility] Other 02-05-2022 18:35-0400 Body weight 97.98 kg Radha Mcgovern Other [facility] Other 02-05-2022 18:35-0400 Respiratory rate 18 /min Radha Mcgovern Other [facility] Other 02-05-2022 18:35-0400 SaO2% (BldA) [Mass fraction] 98 % Radha Mcgovern Other [facility] Other 06-06-2021 11:00-0500 Body height 157.48 cm Paula Ginty Other [facility] Other 06-06-2021 11:00-0500 Body mass index (BMI) [Ratio] 40.23 kg/m2 Paula Ginty Other [facility] Other 06-06-2021 11:00-0500 Body weight 99.79 kg Paula Ginty Other [facility] Other Encounters Encounter Date Encounter Type Care Provider Facility Start: 02-25-2024 End: 02-25-2024 ambulatory JAVIER NOELLE Not Available Start: 02-19-2024 End: 02-19-2024 ambulatory JAVIER NOELLE Not Available Start: 02-12-2024 End: 02-12-2024 ambulatory JAVIER NOELLE Not Available Start: 01-29-2024 End: 01-29-2024 ambulatory KIMANI GREENE Not Available Start: 01-24-2024 End: 01-24-2024 ambulatory [facility] Work Phone: Start: 01-24-2024 End: 01-24-2024 Patient encounter procedure [facility] Work Phone: Start: 08-15-2023 End: 08-15-2023 ambulatory KIMANI GREENE Not Available Start: 07-19-2023 End: 07-20-2023 ambulatory KIMANI R RAMONA [facility] Start: 07-17-2023 End: 07-18-2023 ambulatory KIMANI R RAMONA [facility] Start: 07-08-2023 End: 07-08-2023 ambulatory LOUIE ROSS Not Available Start: 10-04-2022 End: 10-04-2022 ambulatory DEANNE MENDOZA . Facility: Start: 03-30-2022 End: 03-30-2022 ambulatory Paula Brandon Other [facility] Other Start: 03-30-2022 Office outpatient visit 25 minutes Paula Brandon [facility] Start: 02-21-2022 End: 02-21-2022 ambulatory Katharina Shawnee Other [facility] Other Start: 02-21-2022 Office outpatient visit 15 minutes Katharina Shawnee [facility] Start: 02-05-2022 End: 02-05-2022 ambulatory Radhatiesha Mcgovern Other [facility] Other Start: 02-05-2022 Office outpatient visit 25 minutes Radha Shaniqua [facility] Start: 06-06-2021 End: 06-06-2021 ambulatory Paula Giangely Other [facility] Other Start: 06-06-2021 Office outpatient visit 15 minutes Paula Ginty [facility] Start: 05-08-2021 Office outpatient visit 5 minutes Radha Shaniqua [facility] Start: 04-12-2021 Office outpatient visit 5 minutes Katharina Shawnee [facility] Payers Date Payer Category Payer Unknown [id number] 2.16.84 [id number] 1995 Unknown [id number] 2.16.84 [id number] 1997 Unknown [id number] 2.16.84 [id number] 1997 Unknown [id number] 2.16.84 [id number] 1997 Unknown [id number] 2.16.84 [id number] 1997 Unknown [id number] 2.16.84 [id number] 1997 Unknown [id number] 2.16.84 [id number] 1997 Unknown [id number] 2.16.84 [id number] 1959 Unknown [id number] Self-pay Self Pay [id number] Unknown [id number] 2.1 [id number] Social History Date Type Detail Facility Sex Assigned At [facility] Other Start: 1995 Sex Assigned At Female F [facility] Evaluation note 03-30-2022 Note Date & [...] treatment plan. Patient left in stable condition [facility] Other Evaluation note 02-21-2022 Note Date & [...] no improvement in 2 to 3 days. [facility] Other Evaluation note 02-05-2022 Note Date & Type Note Facility 02-05-2022 Evaluation note Encounter Date Diagnosis Assessment Notes Jan, Exposure to COVID-19 virus (ICD-10 - Z20.822) [facility] Other Evaluation note 06-06-2021 Note Date & [...] Patient care instructions given in writting by [facility] document [facility] Other Evaluation note 05-08-2021 Note Date & [...] Patient care instructions given in writting by [facility] document. Additional time spent conducting pre-visit phone call, screening for symptoms, instructions on social distancing, application and removal of PPE, and cleaning of examination room, equipment and supplies was preformed. Patient education given for testing methodology and results. Patient care instructions given in writting by [facility] document. [facility] Other Evaluation note 04-12-2021 Note Date & [...] Patient care instructions given in writting by [facility] document. [facility] Other Evaluation note Note Date & Type Note Facility Evaluation note Diagnosis Onset Date Nausea and vomiting during [facility] Work Phone: History general Narrative - Reported Note Date & Type Note Facility History general Narrative - Reported Type Medical History 21 weeks [facility] Other Summary Purpose Family History No Family History Records FoundNo Family History Records FoundNo Family History Records Found Advance Directives No Advanced Directives Records Found Advance Directive Response Recorded Date/ Time Advance [...] and content) DATE CREATED AUTHOR 10/08/2022 [facility] DATE CREATED AUTHOR AUTHOR'S ORGANIZ ATION 07/21/2023 [facility] DATE CREATED AUTHOR AUTHOR'S ORGANIZ ATION 02/27/2024 [facility] [employer] Care Teams (unrecognized sec tion [...] BE BASED ON THE PRIMARY CLINICAL RECORDS. [employer] provides no warranty or guarantee of the accuracy or completeness of information in this document.
[2024-03-05 05:31] LABS: Hematocrit 33.6 % (36.0-48.0); Hemoglobin 10.9 g/dL (12.0-16.0); Mean Corpuscular HGB Conc 32.4 g/dL (29.9-35.2); Mean Corpuscular Hemoglobin 28.1 pg (26.7-34.0); Mean Corpuscular Volume 86.6 fL (81.0-99.0); Mean Platelet Volume 11.3 fL (9.5-13.5); Platelet Count 270 10^3/uL (150-450); Red Blood Count 3.88 10^6/uL (4.20-5.40); Red Cell Distribution Width 14.4 % (11.0-15.0); White Blood Count 11.1 10^3/uL (4.0-11.0)
[2024-03-05] MEDS: OXYTOCIN/0.9 % SODIUM CHLORIDE 10 UNITS/500 ML PLAST..BAG 6 UNIT IV (06:01)
[2024-03-05] MEDS: 0.9 % SODIUM CHLORIDE 1,000 ML 125 ML IV (06:01)
[2024-03-05 07:09] LABS: Amphetamine Screen Urine NEGATIVE (NEGATIVE); Barbiturates Screen Urine NEGATIVE (NEGATIVE); Benzodiazepines Screen Urine NEGATIVE (NEGATIVE); Buprenorphine Screen Urine NEGATIVE (NEGATIVE); Cannabinoid Screen Urine NEGATIVE (NEGATIVE); Cocaine Screen Urine NEGATIVE (NEGATIVE); Methadone Screen Urine NEGATIVE (NEGATIVE); Methamphetamines Screen Urine NEGATIVE (NEGATIVE); Opiate Screen Urine NEGATIVE (NEGATIVE); Oxycodone Screen Urine NEGATIVE (NEGATIVE); Phencyclidine Screen Urine NEGATIVE (NEGATIVE); Tricyclic Antidepressant Urine NEGATIVE (NEGATIVE)
[2024-03-05] MEDS: NALBUPHINE HCL 10 MG/ML AMPULE IV (10:48)
[2024-03-05] MEDS: ROPIVACAINE HCL/PF 400 MG/200 ML PREMIX 6 MG EPIDURAL (11:42)
[2024-03-05] MEDS: OXYTOCIN/0.9 % SODIUM CHLORIDE 20 UNITS/1,000 ML PLAST..BAG 125 UNIT IV (12:36)
--- NOTE | 2024-03-05 12:39 | PM.OBPRCVD ---
Procedure Intrapartal events: None Induction method: per pitocin protocol Delivery augmentation: rupture of membranes and pitocin Delivery monitor: external FHT and external uterine Route of delivery: Episiotomy Description: none L&D Laceration Description: none Estimated blood loss (mL): 200 Anesthesia type: Epidural Disposition: floor Delivery date: 03/05/24 Gender: male presentation: vertex Placental delivery description: Spontaneous cord description: 3 Vessels
[2024-03-05] MEDS: GLYCERIN/WITCH HAZEL PADS 1 PAD TOPICAL (12:54)
[2024-03-05] MEDS: ACETAMINOPHEN 325 MG TABLET 650 MG PO (12:55)
[2024-03-05] MEDS: IBUPROFEN 600 MG TABLET PO ×2 (12:55→20:35)
[2024-03-05] MEDS: BENZOCAINE/MENTHOL 85 GRAM SPRAY BOTTLE 1 APPLIC TOPICAL (12:55)
[2024-03-06 01:00] VITALS: BP 118/62; PULSE 75; TEMP 36.7
[2024-03-06 01:42] VITALS: BP 118/62; PULSE 75
[2024-03-06] MEDS: ACETAMINOPHEN 325 MG TABLET 650 MG PO ×2 (01:45→07:37)
[2024-03-06 06:38] LABS: Basophils Absolute Auto 0.1 10^3/uL (0.0-0.1); Basophils Percent Auto 0.5 % (0.2-2.0); Eosinophils Absolute Auto 0.2 10^3/uL (0.0-0.7); Eosinophils Percent Auto 2.3 % (0.9-7.0); Hematocrit 29.6 % (36.0-48.0); Hemoglobin 9.4 g/dL (12.0-16.0); Immature Granulocytes Abs Auto 0.07 10^3/uL (0.00-0.03); Immature Granulocytes Pct Auto 0.8 % (0.0-0.5); Lymphocytes Absolute Auto 2.7 10^3/uL (1.2-3.8); Lymphocytes Percent Auto 28.7 % (20.5-60.0); Mean Corpuscular HGB Conc 31.8 g/dL (29.9-35.2); Mean Corpuscular Hemoglobin 27.6 pg (26.7-34.0); Mean Corpuscular Volume 86.8 fL (81.0-99.0); Mean Platelet Volume 11.3 fL (9.5-13.5); Monocytes Absolute Auto 0.9 10^3/uL (0.3-0.8); Monocytes Percent Auto 9.2 % (1.7-12.0); Neutrophils Absolute Auto 5.4 10^3/uL (1.4-6.5); Neutrophils Percent Auto 58.5 % (43.0-75.0); Platelet Count 227 10^3/uL (150-450); Red Blood Count 3.41 10^6/uL (4.20-5.40); Red Cell Distribution Width 14.5 % (11.0-15.0); White Blood Count 9.3 10^3/uL (4.0-11.0)
[2024-03-06 07:45] VITALS: BP 110/68; PULSE 76
[2024-03-06 08:00] VITALS: TEMP 36.6
[2024-03-06 08:21] VITALS: TEMP 36.6
--- NOTE | 2024-03-06 11:57 | PM.OBPN ---
OB - PN: Subj Subjective Patient comments: no complaints and pain well controlled Mcintosh status: doing well Exam Constitutional Vital Signs, click to edit/add: Last Vital Signs Temp 97.9 F 03/06/24 08:21 Pulse 76 03/06/24 07:45 Resp 16 03/06/24 08:00 BP 110/68 03/06/24 07:45 O2 Del Method Room Air 03/06/24 01:00 Documenting provider has reviewed patient's vital signs: yes Common normals: no apparent distress Respiratory Common normals: normal respiratory effort and clear to auscultation bilaterally Cardio Common normals: regular rate and regular rhythm GI Common normals: Normal to inspection, nondistended, normoactive bowel sounds present Extremity Common normals: normal to inspection, no clubbing, cyanosis or edema and no calf tenderness Results Labs Labs: Short CBC 03/06/24 Range/Units 06:28 WBC 9.3 (4.0-11.0) 10^3/uL Hgb 9.4 L (12.0-16.0) g/dL Hct 29.6 L (36.0-48.0) % Plt Count 227 (150-450) 10^3/uL OB - PN: A/P Time Spent with Patient Time: Total time spent is greater than 50% in coordination of care (as documented) at patient's floor/unit and/or counseling patient: Total time spent with greater than 50% in coordination of care (as documented) at patient's floor/unit and/or counseling patient: less than 15 minutes
[2024-03-06] MEDS: IBUPROFEN 600 MG TABLET PO (14:08)
== END 2024-03-06 16:00 | disposition home or self-care (01) | DRG 560 ==
PROVIDERS: Admitting Provider Obstetrics & Gynecology; PCP Nurse Practitioner; Visit Provider Obstetrics & Gynecology
DX: O80 Encounter for full-term uncomplicated delivery (principal); Z37.0 Single live birth; Z3A.39 39 weeks gestation of pregnancy
CPT/HCPCS: 36415; 59050; 59410; 80307; 85025; 85027; 86850; 86900; 86901; 96374; 96375; 96376; J2300; J2795

== ENCOUNTER 2024-04-02 13:46 | Outpatient (OUT) | payer OTHER, SELFPAY ==
--- NOTE | 2024-04-02 14:08 | XR_ITS ---
[address] [address] Patient Name: JOAO ISRAEL MRN: [id number] date: 1995 Sex: F Assigned Patient Location: [facility] Current Patient Location: Accession/Order Number: [id number] Exam Date: 04/02/2024 14:18 Report Date: 04/03/2024 07:21 At the request of: SVEN COSTELLO Procedure: XR chest 2V PROCEDURE: XR chest 2V DATE: 04/02/2024 1:18 PM CDT COMPARISONS: CT chest 10/04/2022 CLINICAL INDICATION: 28 years Female E-CIGARETTE USE FINDINGS: The cardiomediastinal silhouette and pulmonary vasculature are within normal limits. The lungs are clear. There is no evidence of pleural effusion or pneumothorax. XR/XR chest 2V IMPRESSION: Chest radiograph is within normal limits. Electronically authenticated by: CARLOS BUSTAMANTE Date: 04/03/2024 07:21
--- OUTSIDE RECORDS SUMMARY | 2024-04-02 14:14 | XMS_ITS | CCD ---
Author Organization [facility] Inform ion Partnership [facility] Care Team Providers Care Clockmaker Name Role Phone Katharina Mallory Unavailable Radha Mcgovern Unavailable Paula Benitez Unavailable Paula Brandon Unavailable DEANNE WHEAT Consulting UnavailTHOMAS Caballero Admitting Unavailable THOMAS CHÁVEZ Attending Unavailable [facility] Primary Care Unava ilTORRES Moser Consulting Unavailable KIMANI GREENE Referring Unavailable NO PCP, NO PCP Primary Care Unavailable KIMANI GREENE Referring Unavailable LOUIE VARGAS Primary Care Unavailable KIMANI GREENE Attending Unavailable JAVIER DRAKE Attending Unavailable JAVIER DRAKE Attending Unavailable JAVIER DRAKE Attending Unavailable LOUIE ROSS Attending Unavailable KIMANI GREENE Attending Unavailable LOUIE ROSS Attending Unavailable Medications [...] 07-19-2023 HCG.beta subunit Qn 7602 m[IU]/mL Normal [facility] Comment on above: Result Comment: NEW [...] neoplasms. Performed By: #### 2 0415-6 #### [facility] ([id number]) [address] [place] [address] HCG.beta subunit IA 3rd IS Q non 07-17-2023 HCG.beta subunit Qn 4887 m[IU]/mL Normal [facility] Comment on above: Result Comment: NEW [...] neoplasms. Performed By: #### 2 0415-6 #### [facility] ([id number]) [address], [address] [place] [address] CBC AUTO DIFFon 10-04-2022 BASO # 0.1 103/ul Normal 0.0-0.1 [facility] Comment on above: Performed By: #### C BC #### [facility] [address] [address] [address] Chrystal Tsai Basophils/100 WBC (Bld) 0.8 % Normal 0.2-2.0 [facility] Comment on above: Performed By: #### C BC #### [facility] [address] [address] [address] Chrystal Tsai EO # 0.2 103/ul Normal 0.0-0.7 [facility] Comment on above: Performed By: #### C BC #### [facility] [address] [place] [address] Dr. Chrystal Tsai Eosinophils/100 WBC (Bld) 2.5 % Normal 0.9-7.0 [facility] Comment on above: Performed By: #### C BC #### [facility] [address] [place] [address] Dr. Chrystal Tsai Erythrocyte distribution width (RBC) [Ratio] 14.6 % Normal 11.0-15.0 [facility] Comment on above: Performed By: #### C BC #### [facility] [address] [place] [address] Dr. Chrystal Tsai Hematocrit (Bld) [Volume fraction] 40.9 % Normal 36.0-48.0 [facility] Comment on above: Performed By: #### C BC #### [facility] [address] [place] [address] Dr. Chrystal Tsai Hemoglobin (Bld) [Mass/Vol] 13.0 g/dL Normal 12.0-16.0 [facility] Comment on above: Performed By: #### C BC #### [facility] [address] [place] [address] Dr. Chrystal Tsai IG # 0.01 10e3/ul Normal 0.00-0.03 [facility] Comment on above: Performed By: #### C BC #### [facility] [address] [place] [address] Dr. Chrystal Tsai IG % 0.1 % Normal 0.0-0.5 [facility] Comment on above: Performed By: #### C BC #### [facility] [address] [place] [address] Dr. Chrystal Tsai LYMPH # 3.0 103/ul Normal 1.2-3.8 [facility] Comment on above: Performed By: #### C BC #### [facility] [address] [place] [address] Dr. Chrystal Tsai Lymphocytes/100 WBC (Bld) 39.0 % Normal 20.5-60.0 [facility] Comment on above: Performed By: #### C BC #### [facility] [address] [place] [address] Dr. Chrystal Tsai MANUAL DIFF REQ NO Normal [facility] Comment on above: Performed By: #### C BC #### [facility] [address] [place] [address] Dr. Chrystal Tsai MCH (RBC) [Entitic mass] 27.0 pg Normal 26.7-34.0 [facility] Comment on above: Performed By: #### C BC #### [facility] [address] [place] [address] Dr. Chrystal Tsai MCHC (RBC) [Mass/Vol] 31.8 g/dL Normal 29.9-35.2 [facility] Comment on above: Performed By: #### C BC #### [facility] [address] [place] [address] Dr. Chrystal Tsai MCV (RBC) [Entitic vol] 84.9 fL Normal 81.0-99.0 [facility] Comment on above: Performed By: #### C BC #### [facility] [address] [place] [address] Dr. Chrystal Tsai MONO # 0.6 103/ul Normal 0.3-0.8 [facility] Comment on above: Performed By: #### C BC #### [facility] [address] [place] [address] Dr. Chrystal Tsai Monocytes/100 WBC (Bld) 7.2 % Normal 1.7-12.0 [facility] Comment on above: Performed By: #### C BC #### [facility] [address] [place] [address] Dr. Chrystal Tsai NEUT # 3.9 103/ul Normal 1.4-6.5 [facility] Comment on above: Performed By: #### C BC #### [facility] [address] [place] [address] Dr. Chrystal Tsai Neutrophils/100 WBC (Bld) 50.4 % Normal 43.0-75.0 [facility] Comment on above: Performed By: #### C BC #### [facility] [address] [address] [address] Chrystal Tsai Platelet mean volume (Bld) [Entitic vol] 11.3 fL Normal 9.5-13.5 [facility] Comment on above: Performed By: #### C BC #### [facility] [address] [address] [address] Chrystal Tsai PLT 286 103/ul Normal 150-450 [facility] Comment on above: Performed By: #### C BC #### [facility] [address] [address] [address] Chrystal Tsai RBC 4.82 106/ul Normal 4.20-5.40 [facility] Comment on above: Performed By: #### C BC #### [facility] [address] [place] [address] Dr. Chrystal Tsai WBC 7.7 103/ul Normal 4.0-11.0 [facility] Comment on above: Performed By: #### C BC #### [facility] [address] [place] [address] Dr. Chrystal Tsai CTA CHEST WO W [...] by: TORRES MORIN Date: 2022-10-04 19:13 Normal [facility] D-DIMERon 10-04-2022 D-DIMER 0.92 mg/L FEU Critically high <=0.59 [facility] Comment on above: Performed By: #### D DIM #### [facility] [address] [place] [address] Dr. Chrystal Tsai D-DIMER COMMENTS SEE BELOW Normal [facility] Comment on above: Result Comment: Incr eases [...] hospitalization. Performed By: #### D DIM #### [facility] [address] [place] [address] Dr. Chrystal Tsai PROF 14(COMP METB)on 023 Albumin [Mass/Vol] 3.7 g/dL Normal 3.4-5.0 [facility] Comment on above: Performed By: #### C KEYSHA HSTROPN #### [facility] [address] [place] [address] Dr. Chrystal Tsai Albumin/Globulin [Mass ratio] 1.0 {ratio} Normal [facility] Comment on above: Performed By: #### C KEYSHA HSTROPN #### [facility] [address] [place] [address] Dr. Chrystal Tsai ALP [Catalytic activity/Vol] 82 U/L Normal 46-116 [facility] Comment on above: Performed By: #### C KEYSHA HSTROPN #### [facility] [address] [place] [address] Dr. Chrystal Tsai ALT [Catalytic activity/Vol] 17 U/L Normal 14-59 [facility] Comment on above: Performed By: #### C KEYSHA HSTROPN #### [facility] [address] [place] [address] Dr. Chrystal Tsai Anion gap [Moles/Vol] 13.7 mmol/L Normal [facility] Comment on above: Performed By: #### C KEYSHA, HSTROPN #### [facility] [address] [address] [address] Chrystal Tsai AST [Catalytic activity/Vol] 14 U/L Critically low 15-37 [facility] Comment on above: Performed By: #### C MP, HSTROPN #### [facility] [address] [address] [address] Chrystal Tsai Bilirubin [Mass/Vol] 0.2 mg/dL Normal 0.2-1.0 [facility] Comment on above: Performed By: #### C KEYSHA, HSTROPN #### [facility] [address] [place] [address] Dr. Chrystal Tsai Calcium [Mass/Vol] 8.8 mg/dL Normal 8.5-10.1 [facility] Comment on above: Performed By: #### C KEYSHA, HSTROPN #### [facility] [address] [place] [address] Dr. Chrystal Tsai Chloride [Moles/Vol] 107 mmol/L Normal 98-107 [facility] Comment on above: Performed By: #### C KEYSHA, HSTROPN #### [facility] [address] [place] [address] Dr. Chrystal Tsai CO2 [Moles/Vol] 26.6 mmol/L Normal 21.0-32.0 [facility] Comment on above: Performed By: #### C MP, HSTROPN #### [facility] [address] [place] [address] Dr. Chrystal Tsai Creatinine [Mass/Vol] 0.89 mg/dL Normal 0.55-1.02 [facility] Comment on above: Performed By: #### C MP, HSTROPN #### [facility] [address] [address] [address] Chrystal Tsai EGFR-AF JAMAICAN >60 Normal >=60 [facility] Comment on above: Performed By: #### C MP, HSTROPN #### [facility] [address] [address] [address] Chrystal Tsai EGFR-NON AF J[place]ICAN >60 Normal >=60 [facility] Comment on above: Performed By: #### C MP, HSTROPN #### [facility] [address] [address] [address] Chrystal Tsai Globulin (S) [Mass/Vol] 3.7 g/dL Normal [facility] Comment on above: Performed By: #### C MP, HSTROPN #### [facility] [address] [address] [address] Chrystal Tsai Glucose [Mass/Vol] 92 mg/dL Normal 74-106 [facility] Comment on above: Performed By: #### C MP, HSTROPN #### [facility] [address] [address] [address] Chrystal Tsai Potassium [Moles/Vol] 4.3 mmol/L Normal 3.5-5.1 [facility] Comment on above: Performed By: #### C MP, HSTROPN #### [facility] [address] [address] [address] Chrystal Tsai Protein [Mass/Vol] 7.4 g/dL Normal 6.4-8.2 [facility] Comment on above: Performed By: #### C MP, HSTROPN #### [facility] [address] [address] [address] Chrystal Tsai Sodium [Moles/Vol] 143 mmol/L Normal 136-145 [facility] Comment on above: Performed By: #### C MP, HSTROPN #### [facility] [address] [address] [address] Chrystal Tsai Urea nitrogen [Mass/Vol] 9.0 mg/dL Normal 7.0-18.0 [facility] Comment on above: Performed By: #### C MP, HSTROPN #### [facility] [address] [address] [address] Chrystal Tsai Urea nitrogen/Creatinin e [Mass ratio] 10.1 mg/mg Normal [facility] Comment on above: Performed By: #### C MP, HSTROPN #### [facility] [address] [address] [address] Chrystal Tsai TROPONIN, HIGH SENSITIVITYon 10-04-2022 HSTROP <4.0 Normal 4.0-51.3 [facility] Comment on above: Result Comment: CUT- OFF POINTS HAVE BEEN ESTABLISHED BASED ON THE FOURTH UNIVERSAL DEFINITIONS OF MYOCARDIAL INFARCTION. THE UPPER REFERENCE LIMIT (URL) OF TROPONIN, DEFINED THE 99TH PERCENTILE OF cTnI DISTRIBUTION IN A REFERENCE POPULATION, HAS BEEN CONFIRMED THE DECISION THRESHOLD FOR [place] DIAGNOSIS. Performed By: #### C MP, HSTROPN #### [facility] [address] [address] [address] Chrystal Tsai SARS-CoV-2 (COVID-19) RNA NA A+probe Ql (Resp)on 03-30-2022 SARS-CoV-2 (COVID-19) RNA BEST+probe Ql (Unsp spec) Negative [facility] Other SARS-CoV-2 (COVID-19) RNA NA A+probe Ql (Resp)on 02-21-2022 SARS-CoV-2 (COVID-19) RNA BEST+probe Ql (Unsp spec) Negative [facility] Other SARS-CoV-2 (COVID-19) RNA NA A+probe Ql (Resp)on 02-05-2022 SARS-CoV-2 (COVID-19) RNA BEST+probe Ql (Unsp spec) Negative [facility] Other COVID Quick Testingon 2020 Result Negative [facility] Other COVID Quick Testingon 2020 Result Negative [facility] Other COVID Quick Testingon 2020 Result Negative [facility] Other Vital Signs Date Time Vital Sign Value Performing Clinician Facility 01-24-2024 17:02-0400 Body height 157.48 cm [facility] 01-24-2024 17:02-0400 Body mass index (BMI) [Ratio] 41.3 kg/m2 [facility] 01-24-2024 17:02-0400 Body temperature 100.3 [degF] [facility] 01-24-2024 17:02-0400 Body weight 102.51 kg [facility] 01-24-2024 17:02-0400 Diastolic blood pressure 68 mm[Hg] [facility] 01-24-2024 17:02-0400 Heart rate 93 /min [facility] 01-24-2024 17:02-0400 Respiratory rate 18 /min [facility] 01-24-2024 17:02-0400 SaO2% (BldA) [Mass fraction] 99 % [facility] 01-24-2024 17:02-0400 Systolic blood pressure 106 mm[Hg] [facility] 03-30-2022 19:05-0400 Body height 157.48 cm Paula Brandon Other [facility] [employer] Other 03-30-2022 19:05-0400 Body mass index (BMI) [Ratio] 36.61 kg/m2 Paula Aleksandr Other [facility] Other 03-30-2022 19:05-0400 Body temperature 98.8 [degF] Paula Brandon Other [facility] Other 03-30-2022 19:05-0400 Body weight 90.81 kg Paula Brandon Other [facility] Other 03-30-2022 19:05-0400 Diastolic blood pressure 60 mm[Hg] Paula Brandon Other [facility] Other 03-30-2022 19:05-0400 Respiratory rate 18 /min Paula Brandon Other [facility] Other 03-30-2022 19:05-0400 SaO2% (BldA) [Mass fraction] 98 % Paula Brandon Other [facility] Other 03-30-2022 19:05-0400 Systolic blood pressure 103 mm[Hg] Paula Brandon Other [facility] Other 02-21-2022 14:45-0400 Body height 157.48 cm Katharina Mallory Other [facility] Other 02-21-2022 14:45-0400 Body mass index (BMI) [Ratio] 38.59 kg/m2 Katharina Navamond Other [facility] Other 02-21-2022 14:45-0400 Body temperature 98.4 [degF] Katharina Mallory Other [facility] Other 02-21-2022 14:45-0400 Body weight 95.71 kg Katharina Mallory Other [facility] Other 02-21-2022 14:45-0400 Respiratory rate 18 /min Katharina Mallory Other [facility] Other 02-21-2022 14:45-0400 SaO2% (BldA) [Mass fraction] 99 % Katharina Mallory Other [facility] Other 02-05-2022 18:35-0400 Body height 157.48 cm Radha Mcgovern Other [facility] Other 02-05-2022 18:35-0400 Body mass index (BMI) [Ratio] 39.5 kg/m2 Radha Mcgovern Other [facility] Other 02-05-2022 18:35-0400 Body temperature 100.7 [degF] Radha Mcgovern Other [facility] Other 02-05-2022 18:35-0400 Body weight 97.98 kg Radha Mcgovern Other [facility] Other 02-05-2022 18:35-0400 Respiratory rate 18 /min Radha Mcgovern Other [facility] Other 02-05-2022 18:35-0400 SaO2% (BldA) [Mass fraction] 98 % Radha Mcgovern Other [facility] Other 06-06-2021 11:00-0500 Body height 157.48 cm Paula Ginty Other [facility] Other 06-06-2021 11:00-0500 Body mass index (BMI) [Ratio] 40.23 kg/m2 Paula Ginty Other [facility] Other 06-06-2021 11:00-0500 Body weight 99.79 kg Paula Ginty Other [facility] Other Encounters Encounter Date Encounter Type Care Provider Facility Start: 03-30-2024 End: 03-30-2024 ambulatory KIMANI RAMONA Not Available Start: 03-12-2024 End: 03-12-2024 ambulatory LOUIE GARCÍAZ Not Available Start: 02-25-2024 End: 02-25-2024 ambulatory JAVIER DRAKE Not Available Start: 02-19-2024 End: 02-19-2024 ambulatory JAVIER NOELLE Not Available Start: 02-12-2024 End: 02-12-2024 ambulatory JAVIER NOELLE Not Available Start: 01-29-2024 End: 01-29-2024 ambulatory KIMANI RAMONA Not Available Start: 01-24-2024 End: 01-24-2024 ambulatory [facility] Work Phone: Start: 01-24-2024 End: 01-24-2024 Patient encounter procedure [facility] Work Phone: Start: 08-15-2023 End: 08-15-2023 ambulatory KIMANI RAMONA Not Available Start: 07-19-2023 End: 07-20-2023 ambulatory KIMANI R RAMONA [facility] Start: 07-17-2023 End: 07-18-2023 ambulatory KIMANI R RAMONA [facility] Start: 07-08-2023 End: 07-08-2023 ambulatory LOUIE DESMONDKristinEVERARDO Not Available Start: 10-04-2022 End: 10-04-2022 ambulatory DEANNE MENDOZA . Facility: Start: 03-30-2022 End: 03-30-2022 ambulatory Paula Brandon Other [facility] Other Start: 03-30-2022 Office outpatient visit 25 minutes Paula Brandon [facility] Start: 02-21-2022 End: 02-21-2022 ambulatory Katharina Mallory Other [facility] Other Start: 02-21-2022 Office outpatient visit 15 minutes Katharinaashlyn Mallory [facility] Start: 02-05-2022 End: 02-05-2022 ambulatory Radha Mcgovern Other [facility] Other Start: 02-05-2022 Office outpatient visit 25 minutes Radhatiesha Mcgovern [facility] Start: 06-06-2021 End: 06-06-2021 ambulatory Paula Ginty Other [facility] Other Start: 11-16-2021 Office outpatient visit 15 minutes Paula Ginty [facility] Start: 05-08-2021 Office outpatient visit 5 minutes Radha Shaniqua [facility] Start: 04-12-2021 Office outpatient visit 5 minutes Katharina Navamond [facility] Payers Date Payer Category Payer Unknown [id number] 2.16.84 [id number] 1997 Unknown [id number] 2.16.84 [id number] 1997 Unknown [id number] 2.16.84 [id number] 1997 Unknown [id number] 2.16.84 [id number] 1997 Unknown [id number] 2.16.84 [id number] 1997 Unknown [id number] 2.16.84 [id number] 1997 Unknown [id number] 2.16.84 [id number] 1997 Unknown [id number] 2.16.84 [id number] 1997 Unknown [id number] 2.16.84 [id number] 1997 Unknown [id number] 2.16.84 [id number] 1959 Unknown [id number] Self-pay Self Pay [id number] Unknown [id number] 2.1 [id number] Social History Date Type Detail Facility Sex Assigned At [facility] Other Start: 1995 Sex Assigned At Female F [facility] Evaluation note 03-30-2022 Note Date & [...] treatment plan. Patient left in stable condition [facility] Other Evaluation note 02-21-2022 Note Date & [...] no improvement in 2 to 3 days. [facility] Other Evaluation note 02-05-2022 Note Date & Type Note Facility 02-05-2022 Evaluation note Encounter Date Diagnosis Assessment Notes Jan, Exposure to COVID-19 virus (ICD-10 - Z20.822) [facility] Other Evaluation note 06-06-2021 Note Date & [...] Patient care instructions given in writting by [employer] document [facility] Other Evaluation note 05-08-2021 Note Date & [...] Patient care instructions given in writting by [employer] document. Additional time spent conducting pre-visit phone call, screening for symptoms, instructions on social distancing, application and removal of PPE, and cleaning of examination room, equipment and supplies was preformed. Patient education given for testing methodology and results. Patient care instructions given in writting by [employer] [facility] document. [facility] Other Evaluation note 04-12-2021 Note Date & [...] Patient care instructions given in writting by [employer] document. [facility] Other Evaluation note Note Date & Type Note Facility Evaluation note Diagnosis Onset Date Nausea and vomiting during [facility] Work Phone: History general Narrative - Reported Note Date & Type Note Facility History general Narrative - Reported Type Medical History 21 weeks [facility] [employer] Other Summary Purpose Family History No Family [...] and content) DATE CREATED AUTHOR 10/08/2022 [facility] DATE CREATED AUTHOR AUTHOR'S ORGANIZ ATION 07/21/2023 [facility] DATE CREATED AUTHOR AUTHOR'S ORGANIZ ATION 03/31/2024 [facility] [employer] Care Teams (unrecognized sec [...] BE BASED ON THE PRIMARY CLINICAL RECORDS. [facility] [employer] [facility]. provides no warranty or guarantee of the accuracy or completeness of information in this document.
== END 2024-04-02 13:47 | disposition home or self-care (01) ==
LOC: PST 13:49
PROVIDERS: PCP Nurse Practitioner; Visit Provider Obstetrics & Gynecology
DX: Z01.810 Encounter for preprocedural cardiovascular examination (principal)
CPT/HCPCS: 71046

== ENCOUNTER 2025-07-07 07:50 | Inpatient (IN) | payer SELFPAY ==
[2025-07-07] VITALS (12 sets, daily range): BP systolic 97–119; BP diastolic 53–70; PULSE 67–89; TEMP 36.6–36.7
--- OUTSIDE RECORDS SUMMARY | 2025-07-07 07:38 | XMS_ITS | Clinical Summary ---
Author Organization [facility] Address [address] [place] [address] Care Team Providers Care Executive Producer Name Role Phone Asia Martínez Unavailable Lui Wong DO Primary Care Provider Allergies No known active allergies Medications MedicationSigDispense QuantityRefillsLast FilledStart DateEnd DateStatus amphetamine-dextroamphetamine (Adderall) 12.5 MG tablet Indications:Attention deficit hyperactivity disorder (ADHD), predominantly inattentive typeTake 1 tablet (12.5 mg) by mouth Daily Take in the afternoon 30 tablet /5Active amphetamine-dextroamphetamine XR (Adderall XR) 20 MG 24 hr capsule Indications:Attention deficit hyperactivity disorder (ADHD), predominantly inattentive typeTake 1 capsule (20 mg) by mouth in the morning. Do not crush or chew. 30 capsule 5Active amphetamine-dextroamphetamine XR (Adderall XR) 20 MG 24 hr capsule Indications:Attention deficit hyperactivity disorder (ADHD), predominantly inattentive typeTake 1 capsule (20 mg) by mouth in the morning. Do not crush or chew. 30 capsule Discontinued(Reorder) amphetamine-dextroamphetamine (Adderall) 12.5 MG tablet Indications:Attention deficit hyperactivity disorder (ADHD), predominantly inattentive typeTake 1 tablet (12.5 mg) by mouth Daily Take in the afternoon 30 tablet Discontinued(Reorder) Active Problems ProblemNoted DateDiagnosed DateBody mass index (BMI) 40.0-44.9, adult10/08/2024 Controlled substance agreement hhqtkr4707/07/2024 Overview (07/07/2024): Med agreement: 07/07/24 Assessment & Plan (07/07/2024 9:06 AM EST): Signed 07/07/24 Other specified ldvxlmp9804/14/2024 Assessment & Plan (10/08/2024 6:18 AM EDT): Hx of this, did not get labs completed to document resolution after Will re order today Assessment & Plan (04/14/2024 10:12 AM EDT): Check labs Morbid (severe) obesity due to excess zpdfkygu38/22/2024 Assessment & Plan (01/06/2025 5:50 AM EDT): Discussed with patient their BMI (actual, verses recommended). We have also discussed lifestyle modifications: attempts to perform physical activity as chronic conditions allow, also to monitor dietary intake: increasing protein/fruits/veggies and lowering carb intake (unless contraindicated). Limit sodas, juices, and sugary drinks. Assessment & Plan (07/07/2024 6:15 AM EST): Discussed with patient their BMI (actual, verses recommended). We have also discussed lifestyle modifications: attempts to perform physical activity as chronic conditions allow, also to monitor dietary intake: increasing protein/fruits/veggies and lowering carb intake (unless contraindicated). Limit sodas, juices, and sugary drinks. Gastro-esophageal reflux disease without /18/2024union, left 10/07/2023Tobacco user10/07/2023 Assessment & Plan (01/06/2025 5:51 AM EDT): The patient has been advised of the risks of continued smoking: stroke, CA, all forms of cancer, lung disease, and . Options for quitting smoking include: cold turkey, hypnosis, acupuncture, nicotine replacement meds(gum, lozenges, and patches), Buproprion, and Varenicline. At this time pt is encouraged to evaluate their goals for wanting to quit smoking, and reach out toprovider when ready to start this process Assessment & Plan (10/08/2024 6:14 AM EDT): The patient has been advised of the risks of continued smoking: stroke, CA, all forms of cancer, lung disease, and . Options for quitting smoking include: cold turkey, hypnosis, acupuncture, nicotine replacement meds(gum, lozenges, and patches), Buproprion, and Varenicline. At this time pt is encouraged to evaluate their goals for wanting to quit smoking, and reach out toprovider when ready to start this process Assessment & Plan (07/07/2024 6:18 AM EST): The patient has been advised of the risks of continued smoking: stroke, CA, all forms of cancer, lung disease, and . Options for quitting smoking include: cold turkey, hypnosis, acupuncture, nicotine replacement meds(gum, lozenges, and patches), Buproprion, and Varenicline. At this time pt is encouraged to evaluate their goals for wanting to quit smoking, and reach out toprovider when ready to start this process Sdbddej35/18/2024Attention deficit hyperactivity disorder (ADHD), predominantly inattentive type07/08/2023 Overview (07/07/2024): Med agreement signed: , 07/07/24 Assessment & Plan (04/12/2025 1:57 PM EDT): - ADHD managed on current regimen of Adderall with good effect but patient feels could be better, with some difficulty remembering to take the afternoon dose. - Open to considering Vyvanse as an alternative for longer duration of effect. - No reported side effects from current medication. - Recommended adjusting timing of morning Adderall dose to later in the morning, closer to start ofwork, to extend coverage into afternoon. Patient liked this idea so as to minimize medicine changesbut we can always consider Vyvanse change in the future if this change doesn't improve her symptom control - Refill for Adderall sent to [facility] pharmacy. - Follow-up scheduled in approximately 3 months for ongoing ADHD medication management. - Advised to message via [employer] [facility] if interested in switching to Vyvanse or if further issues arise. Orders: amphetamine-dextroamphetamine XR (Adderall XR) 20 MG 24 hr capsule; Take 1 capsule (20 mg) by mouthin the morning. Do not crush or chew. amphetamine-dextroamphetamine (Adderall) 12.5 MG tablet; Take 1 tablet (12.5 mg) by mouth Daily Take in the afternoon Assessment & Plan (01/06/2025 5:51 AM EDT): OARRS reviewed Current dose: adderall XR 20mg in am, and 12.5mg in afternoon, feels this is helpful Assessment & Plan (10/08/2024 9:52 AM EDT): OARRS reviewed Current dose: adderall XR 20mg in am, and 12.5mg in afternoon, feels this is helpful Has been out since 10/05/24 Assessment & Plan (07/07/2024 9:16 AM EST): Med agreement signed at today's visit Would like to increase the afternoon IR dose OARRS reviewed Fu in 3 months Assessment & Plan (04/14/2024 10:12 AM EDT): Continue current meds at current dose OARRS reviewed Fu in 3 months Assessment & Plan (03/12/2024 10:17 AM EDT): Will restart her adderall xr at 20mg and afternoon dose at 10mg Fu in 4 weeks Sooner if needed Monitor for worsening depression and anxiety OARRS reviewed Assessment & Plan (07/08/2023 10:48 AM EST): OARRS reviewed Continue with Adderall Xr and plain release Fu in 3 months Resolved Problems ProblemNoted DateDiagnosed DateResolved DateBody mass index (BMI) 37.0-37.9, adult/ Encounters DateTypeDepartmentCare AytbUvfgicsdres31/19/2025Telephone [facility] [address], [address] [place] [phone] Lui Wong DO Med Lwincq7505/09/2025Refill [facility] [address], [address] [place] [phone] Lui Wong DO Attention deficit hyperactivity disorder (ADHD), predominantly inattentive type 04/12/2025 1:20 PM EDTOffice Visit [facility] [address], [address] [place] [phone] Lui Wong DO Attention deficit hyperactivity disorder (ADHD), predominantly inattentive type 04/12/2025amboo flowsheet [facility] [address], [address] [place] [phone] Lui Wong DO from Last 3 Months Family History Medical HistoryRelationNameCommentsDiabetesFatherArthritisMaternal Grandfather AsthmaMaternal GrandfatherDiabetesMaternal GrandfatherHyperlipidemiaMaternal GrandfatherBipolar disorderMotherDepressionMotherMental illnessMotherRelation NameStatusCommentsDaughterAlive2, healthyFatherAliveMaternal GrandfatherMother AliveSonAlive2 Social History Tobacco UseTypesPacks/DayYears UsedDateSmoking Tobacco: NeverSmokeless Tobacco: Never Tobacco Cessation:Counseling Given: Not Answered Alcohol UseStandard Drinks/WeekCommentsNever0 (1 standard drink = 0.6 oz pure alcohol)caffine: once in a while.Social Connection and Isolation PanelAnswerDate RecordedIn a typical week, how many times do you talk on the phone with family, friends, or neighbors?Patient chfnqdxe85/13/2025How often do you get together with friends or relatives?Patient yodnjphd41/13/2025How often do you attend mormon or spiritism services?Patient /13/2025Do you belong to any clubs or organizations such as mormon groups, unions, fraternal or athletic cash ups, or school groups?Patient quqbvlhs18/13/2025How often do you attend meetings of the clubs or organizations you belong to?Patient xwelgshz10/13/2025re you , , , , never , or living with a partner? Patient jaxtkuqk63/13/2025UDIT-CAnswerDate RecordedQ1: How often do you have a drink containing alcohol?Never04/12/2025Q2: How many drinks containing alcohol do you have on a typical day when you are drinking?Patient does not drink 04/12/2025Q3: How often do you have six or more drinks on one occasion?Never 04/12/2025Overall Financial Resource Strain (CARDIA)AnswerDate RecordedHow hard is it for you to pay for the very basics like food, housing, medical care, and heating?Patient svwrvxmy67/13/2025PHQ-2AnswerDate RecordedPatient Health Questionnaire-2 Gpkqu781Finlakeview hospital [place] of Occupational [facility] - Occupational Stress QuestionnaireAnswerDate RecordedDo you feel stress - tense, restless, nervous, or anxious, or unable to sleep at night because yourmind is troubled all the time - these days?Patient coyyfcam11/13/2025Exercise Vital Sign AnswerDate RecordedOn average, how many days per week do you engage in moderate to strenuous exercise (like a brisk walk)?Patient qrztotxp11/13/2025On average, how many minutes do you engage in exercise at this level?Patient declined 10/01/2024Hunger Vital SignAnswerDate RecordedWithin the past 12 months, you worried that your food would run out before you got the money to buymore.Patient mnpucjml75/13/2025Within the past 12 months, the food you bought just didn't last and you didn't have money to get more.Patient /13/2025PRAPARE - TransportationAnswerDate RecordedIn the past 12 months, has lack of transportation kept you from medical appointments or from getting medications? Patient /13/2025In the past 12 months, has lack of transportation kept you from meetings, work, or from getting things needed for daily living?Patient dtdiaprs70/13/2025Housing Stability Vital SignAnswerDate RecordedIn the last 12 months, was there a time when you were not able to pay the mortgage or rent on time?Patient jcnhfeny88/13/2025Number of Times Moved in the Last YearNot on file 10/01/2024t any time in the past 12 months, were you homeless or living in a usp (including now)?Patient zlgtssba07/13/2025CommentsUnknownSex and Gender InformationValueDate RecordedSex Assigned at BirthNot on fileLegal Sex Hfcxod0610/03/2022 11:19 PM EDTGender IdentityNot on fileSexual OrientationNot on file Last Filed Vital Signs Vital SignReadingTime TakenCommentsBlood Yqubprmg161/76004/12/2025 1:18 PM EDT Jaxyh01243/22/2025 1:18 PM FYGXlzwsdkbtgw09.3 ??C (97.4 ??F)04/12/2025 1:18 PM EDTRespiratory Rrwi187904/12/2025 1:18 PM EDTOxygen Fnqyguqzkr52%04/12/2025 1:18 PM EDTInhaled Oxygen Concentration--Cfoyjd252 kg (233 lb)04/12/2025 1:18 PM EDT Haiqyn077.5 cm (5' 2 )04/12/2025 1:18 PM EDTBody Mass Index42.62004/12/2025 1:18 PM EDT Plan of Treatment DateTypeDepartmentCare Team (Latest Contact Info)Ansjewixdul60/29/2025 9:20 AM ESTOffice Visit [facility] [address], [facility] [address] [place] [phone] Lui Wong, [address] [facility] [address] [place] [address] Health MaintenanceDue DateLast DoneCommentsCOVID-19 Vaccine ( season) 2025Influenza VaccineDiscontinuedPneumococcal Vaccine: Pediatrics (0 to 5 Years) and At-Risk Patients (6 to 64 Years)Aged OutNo longer eligible based on patient's age to complete this topic Insurance Care Teams Team MemberRelationshipSpecialtyStart DateEnd Date Asia Martínez PA [address] [place] [address] [place] [address] PCP - [facility]07/22/24 Lui Wong DO [address] [place] [address] [place] [address] [facility]04[facility]09/25
--- OUTSIDE RECORDS SUMMARY | 2025-07-07 07:38 | XMS_ITS | Clinical Summary ---
Author Organization [employer] tem Address [id number] [address] [place] [address] Care Team Providers Care Order Manager Name Role Phone Balbina De Catalina TURKEY PICKER-ASSOCIATE DIRECTOR OF BIOSTATISTICS Primary Care Provider + Allergies No known active allergies Medications MedicationSigDispense QuantityRefillsLast FilledStart DateEnd DateStatus etonogestreL (NEXPLANON) 68 mg implant 68 mg by subdermal route once.Active Active Problems No known active problems Social History Tobacco UseTypesPacks/DayYears UsedDateSmoking Tobacco: NeverSmokeless Tobacco: NeverAlcohol UseStandard Drinks/WeekCommentsYes0 (1 standard drink = 0.6 oz pure alcohol)occasionallyChildcareAnswerDate UowzraxsMifygqmslUeitlqx24/07/2019 EmploymentAnswerDate LbgvimebGvmitwcvhkPtwlztf10/07/2019Purpose - LifeAnswerDate RecordedPurpose and direction in yezoJqoahrp28/31/2021CommentsNoSex and Gender InformationValueDate RecordedSex Assigned at BirthNot on fileLegal Sex Hisjot2102/24/2015 12:04 PM EDTGender IdentityNot on fileSexual OrientationNot on file Last Filed Vital Signs Vital SignReadingTime TakenCommentsBlood Lchfhhmn641/7408/21/2020 9:00 PM EST Psoek560808/21/2020 9:00 PM XJJPgqyibrybgz07.9 ??C (98.4 ??F)08/21/2020 7:50 PM ESTRespiratory Ygrz419808/21/2020 9:00 PM ESTOxygen Sllzeljzro28%08/21/2020 9:00 PM ESTInhaled Oxygen Concentration--Ykdugy81.5 kg (215 lb)08/21/2020 7:50 PM EST Kcbaig697.5 cm (5' 2 )08/21/2020 7:50 PM ESTBody Mass Index39.32008/21/2020 7:50 PM EST Plan of Treatment Health MaintenanceDue DateLast DoneCommentsDepression Ufysjksjk68/22/2010Tobacco Xnqfmmqof01/22/2010dult BMI Tgqsgfevt02/22/2016Pap Smear2018DTaP,Tdap and Td Vaccines (7 - Td or Tdap), 01/26/2003, 07/05/1999, Additional history existsInfluenza Swfjaaz13, 05/29/2012, 05/07/2011 Medical Devices Not on file Insurance Care Teams Team MemberRelationshipSpecialtyStart DateEnd Date Balbina De, LEATHA-ASSOCIATE DIRECTOR OF BIOSTATISTICS PCP - GeneralObstetrics & Ahvdlwujbo56/29/23
[2025-07-07] MEDS: 0.9 % SODIUM CHLORIDE 1,000 ML 125 ML IV (07:54)
[2025-07-07] MEDS: AMPICILLIN SODIUM 2,000 MG in 0.9 % SODIUM CHLORIDE 100 ML 200 MG IV (07:55)
[2025-07-07 08:15] LABS: Hematocrit 33.3 % (36.0-48.0); Hemoglobin 11.0 g/dL (12.0-16.0); Mean Corpuscular HGB Conc 33.0 g/dL (29.9-35.2); Mean Corpuscular Hemoglobin 26.8 pg (26.7-34.0); Mean Corpuscular Volume 81.2 fL (81.0-99.0); Platelet Count 320 10^3/uL (150-450); Red Blood Count 4.10 10^6/uL (4.20-5.40); White Blood Count 11.4 10^3/uL (4.0-11.0)
[2025-07-07] MEDS: OXYTOCIN/0.9 % SODIUM CHLORIDE 20 UNITS/1,000 ML PLAST..BAG 125 UNIT IV (08:16)
[2025-07-07] MEDS: LIDOCAINE HCL 1% 200 MG/20 ML MDV INJ (08:18)
--- NOTE | 2025-07-07 10:02 | PM.OBPRCVD ---
Procedure Intrapartal events: None Induction method: none Delivery monitor: external FHT and external uterine Route of delivery: Episiotomy Description: none L&D Laceration Description: perineal - 1st degree Delivery repair: Vicryl Estimated blood loss (mL): 200 Anesthesia type: None Disposition: floor Delivery date: 07/07/25 Gender: female presentation: vertex Placental delivery description: Spontaneous cord description: 3 Vessels
[2025-07-07] MEDS: IBUPROFEN 400 MG TABLET 800 MG PO ×2 (10:36→23:54)
--- NOTE | 2025-07-07 20:13 | PC.NURSE ---
0740- Pt arrives to [facility] at this time via wheelchair with support person. Pt anxious demeanor. Pt breathing through cxt's. Pt c/o of SROM at 0657 this AM; Pt pants visible soiled with wet fluid. Pt assisted to bed at this time and assisted into hospital gown. Pt pulls a soaked towel from underwear at this time; meconium color of fluid noted. Pt states she has not seen an OB this entire but had a anatomy scan at 20 weeks somewhere at [facility] . Pt states her due date is 07/08/2025. Pt states she saw her family doctor for ADHD medications last May. Pt states she recently had ADHD medications increased. Pt states she does not take other meds. Pt states she had prenatals labs drawn. Pt denies allergies. Pt denies alcohol, drug, or tobacco use with this . 0758- Pt requests epidural at this time. RETAIL OFFICE ASSOCIATE notified; RETAIL OFFICE ASSOCIATE unavailable at this time due to OR case.
[2025-07-07 20:49] LABS: Cannabinoid Screen Urine NEGATIVE (NEGATIVE); Methamphetamines Screen Urine NEGATIVE (NEGATIVE); Tricyclic Antidepressant Urine NEGATIVE (NEGATIVE)
--- NOTE | 2025-07-07 21:03 | PC.NURSE ---
1645- Pt refuses GC/ Chlamydia swab at this time. Pt reminded to obtain urine specimen for sample at this time.
[2025-07-08 06:08] LABS: Rubella Antibodies, IgG 2.90 index (Immune >0.99)
[2025-07-08 06:26] LABS: Hematocrit 30.8 % (36.0-48.0); Hemoglobin 9.8 g/dL (12.0-16.0); Immature Granulocytes Abs Auto 0.10 10^3/uL (0.00-0.03); Immature Granulocytes Pct Auto 0.9 % (0.0-0.5); Lymphocytes Absolute Auto 3.5 10^3/uL (1.2-3.8); Mean Corpuscular HGB Conc 31.8 g/dL (29.9-35.2); Mean Corpuscular Hemoglobin 26.2 pg (26.7-34.0); Mean Corpuscular Volume 82.4 fL (81.0-99.0); Platelet Count 282 10^3/uL (150-450); Red Blood Count 3.74 10^6/uL (4.20-5.40); White Blood Count 10.7 10^3/uL (4.0-11.0)
--- NOTE | 2025-07-08 07:54 | PM.OBPN ---
OB - PN: Subj Subjective Patient comments: no complaints and pain well controlled status: doing well Exam Constitutional Vital Signs, click to edit/add: Last Vital Signs Temp 97.8 F 07/07/25 10:15 Pulse 89 07/07/25 23:50 Resp 14 07/07/25 10:15 BP 109/65 07/07/25 23:50 O2 Del Method Room Air 07/07/25 23:50 Documenting provider has reviewed patient's vital signs: yes Common normals: no apparent distress Respiratory Common normals: normal respiratory effort and clear to auscultation bilaterally Cardio Common normals: regular rate and regular rhythm GI Common normals: Normal to inspection, nondistended, normoactive bowel sounds present Extremity Common normals: no clubbing, cyanosis or edema and no calf tenderness Results Labs Labs: Short CBC 07/07/25 07/08/25 Range/Units 07:50 06:09 WBC 11.4 H 10.7 (4.0-11.0) 10^3/uL Hgb 11.0 L 9.8 L (12.0-16.0) g/dL Hct 33.3 L 30.8 L (36.0-48.0) % Plt Count 320 282 (150-450) 10^3/uL OB - PN: A/P Plan - Vaginal Delivery day: 1 Plan: routine care Time Spent with Patient Time: Total time spent is greater than 50% in coordination of care (as documented) at patient's floor/unit and/or counseling patient: Total time spent with greater than 50% in coordination of care (as documented) at patient's floor/unit and/or counseling patient: less than 15 minutes
[2025-07-08 08:41] VITALS: BP 106/52; PULSE 75
[2025-07-08 08:45] VITALS: TEMP 36.4
[2025-07-08 12:12] LABS: Rapid Plasma Reagin, Quant Non Reactive titer (NonRea<1:1)
[2025-07-08] MEDS: DOCUSATE SODIUM 100 MG CAPSULE PO ×2 (12:42→22:20)
[2025-07-08 16:40] VITALS: TEMP 36.8
[2025-07-08 16:43] VITALS: BP 120/72; PULSE 80
--- NOTE | 2025-07-08 19:28 | W.PC.ACHO ---
Registration Status: ADM IN Primary Language: Tongan Preferred Language: Tongan Report given to Sky DURAND. Care relinquished at 1900. Active Medications Generic Name Dose Route Start Last Admin Trade Name Francis PRN Reason Stop Dose Admin Acetaminophen 650 mg 07/07/25 08:24 Acetaminophen 325 Mg Tablet PO Q6H PRN Mild Pain Al Hydroxide/Mg Hydroxide 2,400 mg 07/07/25 08:24 Magnesium Hydroxide 2,400 Mg/10 Ml Oral.Susp PO Q6H PRN Dyspepsia Benzocaine/Menthol 1 applic 07/07/25 08:24 Benzocaine/Menthol 85 Gram [place] Bottle TOPICAL Q2H PRN Pain Docusate Sodium 100 mg 07/08/25 09:00 07/08/25 12:42 Docusate Sodium 100 Mg Capsule PO 100 mg BID MANJEET Administration Ibuprofen 800 mg 07/07/25 08:30 07/08/25 06:15 Ibuprofen 400 Mg Tablet PO Not Given Q8H MANJEET Ondansetron HCl 4 mg 07/07/25 07:57 Ondansetron Pf 4 Mg/2 Ml Vial IV Q6H PRN Nausea And Vomiting Ondansetron HCl 4 mg 07/07/25 07:57 Ondansetron 4 Mg Rapdis Tablet SL Q6H PRN Nausea And Vomiting Senna 17.2 mg 07/07/25 20:00 Sennosides 8.6 Mg Tablet PO QHS PRN Constipation Simethicone 80 mg 07/07/25 08:24 Simethicone 80 Mg Tab.Chew PO QID PRN Abdominal Distention Temazepam 15 mg 07/07/25 08:24 Temazepam 15 Mg Capsule PO QHS PRN Sleep Witch Joann/Glycerin 1 pad 07/07/25 08:24 Glycerin/Witch Joann Pads TOPICAL Q2H PRN Pain Consults Category Date Time Status Consult to Engine Service Repairer Routine Cons 07/08/25 Ordered Respiratory Oxygen Delivery Method Room Air Oxygen Delivery Method Room Air Oxygen Delivery Method Room Air Cardiology Heart Sounds Regular,Strong Bowels Bowel Pattern No Bowel Movement Renal Bladder Pattern Continent Bladder Pattern Continent
[2025-07-08] MEDS: IBUPROFEN 400 MG TABLET 800 MG PO (22:20)
[2025-07-09 00:08] VITALS: TEMP 36.7
[2025-07-09 00:09] VITALS: BP 108/72; PULSE 82
--- NOTE | 2025-07-09 07:42 | PM.OBPN ---
OB - PN: Subj Subjective Patient comments: no complaints and pain well controlled [place] status: doing well Exam Constitutional Vital Signs, click to edit/add: Last Vital Signs Temp 98.1 F 07/09/25 00:08 Pulse 82 07/09/25 00:09 Resp 18 07/09/25 00:08 BP 108/72 07/09/25 00:09 O2 Del Method Room Air 07/09/25 00:08 Documenting provider has reviewed patient's vital signs: yes Common normals: no apparent distress Respiratory Common normals: normal respiratory effort and clear to auscultation bilaterally Cardio Common normals: regular rate and regular rhythm GI Common normals: Normal to inspection, nondistended, normoactive bowel sounds present Extremity Common normals: no clubbing, cyanosis or edema and no calf tenderness OB - PN: A/P Plan - Vaginal Delivery day: 2 Plan: routine care, discharge home and follow up 6 weeks Time Spent with Patient Time: Total time spent is greater than 50% in coordination of care (as documented) at patient's floor/unit and/or counseling patient: Total time spent with greater than 50% in coordination of care (as documented) at patient's floor/unit and/or counseling patient: less than 15 minutes
[2025-07-09 08:10] VITALS: BP 113/71; PULSE 83; TEMP 36.7
[2025-07-09] MEDS: IBUPROFEN 400 MG TABLET 800 MG PO (08:12)
--- NOTE | 2025-07-09 09:38 | SWNOTE1 ---
JOSE consulted for lack of care due to insurance. JOSE met with pt, father of baby was sleeping on couch. They do have everything the need at home for baby. This will her 6th child. They have 5 other children in the home ranging from 11 to 1. They do have good support at home as well. SW did ask her about insurance and Medicaid. Pt voiced she was working at [employer], but that ended in January. She now works for an agency. She stated some weeks/months she does make decent and other weeks/months she does not make too much. For the past few months she has been having to re-apply for Medicaid each month. She will call the 800 number that she calls every month once she is home and she will also have the baby added as well. JOSE was unsure of an easier process. JOSE asked if she had a lining caser? She stated she does, but has never spoke with them. Pt is alright with the process and appreciated SW stopping in. JOSE updated nurse.
[2025-07-09 20:08] LABS: Neisseria gonorrhoeae, NAA Negative (Negative)
== END 2025-07-09 15:15 | disposition home or self-care (01) | DRG 807 ==
LOC: FBCO 07:57 → FBC 07:57
PROVIDERS: Midwife; Admitting Provider Obstetrics & Gynecology; PCP Nurse Practitioner; Visit Provider Obstetrics & Gynecology
DX: O70.0 First degree perineal laceration during delivery (principal); Z37.0 Single live birth; Z3A.40 40 weeks gestation of pregnancy
CPT/HCPCS: 36415; 59050; 59410; 80307; 83036; 85025; 85027; 86592; 86762; 86803; 86850; 86900; 86901; 87340; 87389; 87491; 87591; J0290